=== PATIENT | female | born 1965 | race Caucasian/White ===

== ENCOUNTER 2018-06-19 00:21 | Outpatient (CLI) | payer BC, SELFPAY ==
--- NOTE | 2018-06-19 09:42 | DI.US_ITS ---
SYMPTOM/DIAGNOSIS: LUMP OF LT THIGH, R22.42, ? FLUID CYST, PAINFUL LUMP SOFT TISSUE OF POSTERIOR LEFT THIGH: Ultrasound examination of the posterior thigh at its junction with the right gluteus muscle is performed. A well circumscribed, ovoid, 1.7 by 2.9 by 1 cm., heterogeneous region of nodularity is demonstrated and there may be a tract extending to the skin. Correlation with the patient's clinical status is recommended.
[2018-06-19 12:42] LABS: ALT 104 U/L (12-78); AST 50 U/L (15-37); Albumin 4.1 g/dL (3.4-5.0); Alkaline Phosphatase 104 U/L (46-116); Anion Gap 9.7 mmol/L (3-11); BUN 20 mg/dL (7-18); CO2 29.3 mmol/L (21.0-32.0); Calcium 9.4 mg/dL (8.5-10.1); Chloride 106 mmol/L (98-107); Cholesterol 229 mg/dL (50-200); Glucose 98 mg/dL (70-100); HDL Cholesterol 68 mg/dL (40-60); LDL CHOLESTEROL 139 mg/dL (<100); Potassium 3.9 mmol/L (3.5-5.1); Sodium 145 mmol/L (136-145); Total Protein 7.2 g/dL (6.4-8.2); Triglyceride 170 mg/dL (30-150)
[2018-06-19 13:14] LABS: Bilirubin, Total 0.7 mg/dL (0.2-1.0)
== END 2018-06-19 00:41 ==
DX: R22.42 Localized swelling, mass and lump, left lower limb (principal); M79.652 Pain in left thigh; Z00.00 Encounter for general adult medical examination without abnormal findings; K29.50 Unspecified chronic gastritis without bleeding; M25.552 Pain in left hip
CPT/HCPCS: 36415; 76881; 80053; 80061; 83721

== ENCOUNTER 2018-10-10 00:46 | Outpatient (CLI) | payer BC, SELFPAY ==
[2018-10-10 08:26] LABS: HCT 41.9 % (36.0-46.0); HGB 13.9 g/dL (12.0-15.5); Mean Corp. HGB Concentration 33.2 g/dL (32.0-36.0); Mean Corpuscular Volume 93.5 fL (80-95); Mean Platelet Volume 10.4 fL (8.0-11.0); Platelet Count 308 x1000/uL (130-400); RBC 4.48 m/cumm (4.00-5.20); RBC Distribution Width 12.8 % (11.7-14.6); White Blood Cell Count 10.66 k/cumm (4.4-10.8)
[2018-10-10 08:32] LABS: Bilirubin Negative (Negative); Blood Large (Negative); Glucose Negative (Negative); Ketones Negative (Negative); Leukocyte Esterase Moderate (Negative); Nitrite Positive (Negative); Urobilinogen 0.2 EU/dL (Up TO 0.2)
[2018-10-10 08:33] LABS: Clarity Sl Cloudy
[2018-10-10 08:41] LABS: Bacteria Moderate HPF (Negative); C & S Indicated? Yes; Casts Negative LPF (Negative); Crystals Negative HPF (Negative); Epithelial Cells Few HPF (Negative); Mucus Negative (Negative); RBC 20-50 (0-2); WBC 20-50 HPF (0-5)
[2018-10-10 09:40] LABS: ALT 32 U/L (12-78); AST 26 U/L (15-37); Albumin 3.8 g/dL (3.4-5.0); Alkaline Phosphatase 98 U/L (46-116); Anion Gap 10.2 mmol/L (3-11); BUN 17 mg/dL (7-18); Bilirubin, Direct 0.12 mg/dL (0.00-0.20); Bilirubin, Total 0.3 mg/dL (0.2-1.0); CO2 29.8 mmol/L (21.0-32.0); CREATININE 0.84 mg/dL (0.55-1.02); Calcium 9.4 mg/dL (8.5-10.1); Chloride 101 mmol/L (98-107); Glucose 85 mg/dL (70-100); Potassium 3.8 mmol/L (3.5-5.1); Sodium 141 mmol/L (136-145); Total Protein 7.1 g/dL (6.4-8.2)
== END 2018-10-10 01:06 ==
DX: R31.9 Hematuria, unspecified (principal); R68.89 Other general symptoms and signs
CPT/HCPCS: 36415; 80053; 80076; 85027; 87077; 81003; 81015; 87086; 87186

== ENCOUNTER 2019-04-20 15:13 | Outpatient (REF) | payer BC, SELFPAY | END 2019-04-20 15:33 | LOC: LBN 15:13 | DX: M25.552 Pain in left hip (principal); S31.829A Unspecified open wound of left buttock, initial encounter | CPT/HCPCS: 87070; 87205 ==

== ENCOUNTER 2019-04-27 00:42 | Outpatient (CLI) | payer BC, SELFPAY ==
--- NOTE | 2019-04-27 07:47 | DI.RAD_ITS ---
SYMPTOMS/DIAGNOSIS: HIP PAIN, M25.559 BILATERAL HIPS AND PELVIS: Comparison x-ray of the abdomen from 04/29/09. In the left hip there is marked narrowing of the superior joint space. Subchondral sclerosis and cysts are noted. There are osteophytes arising from both acetabulum and the femoral head. The right hip is well maintained as are the sacroiliac joints and symphysis pubis. There is again seen a transitional lumbosacral vertebral body. No acute fracture or subluxation is seen. The soft tissues are unremarkable. IMPRESSION: Severe osteoarthritis of the left hip.
== END 2019-04-27 01:02 ==
DX: M25.552 Pain in left hip (principal); M16.12 Unilateral primary osteoarthritis, left hip
CPT/HCPCS: 73521

== ENCOUNTER 2019-05-22 01:01 | Outpatient (CLI) | payer BC, SELFPAY ==
--- NOTE | 2019-05-22 08:13 | DI.RAD_ITS ---
SYMPTOM/DIAGNOSIS: LT HIP INJECTION, PRIMARY OA LT HIP, M16.12 LEFT HIP INJECTION: Fluoroscopy Time: 11.2 seconds 1.08 mGy Fluoroscopy was utilized by Dr Thornton during the performance of a left hip injection. Please refer to the procedure report for complete details.
[2019-05-22] MEDS: methylPREDNISolone ACETATE 80 MG/ML VIAL IM (08:15)
[2019-05-22] MEDS: Omnipaque 300 MG/ML 10 ML BTL IJ (08:16)
[2019-05-22] MEDS: Bupivacaine 0.5% Pres-Free 10 ML VIAL 5 ML IJ (08:16)
--- NOTE | 2019-05-22 10:45 | W.PROCNOTE ---
Date of service: 05/22/19 Time of Service: 08:07 Procedure Note Date of procedure: 05/22/19 Procedure: Left Hip Injection with Fluoroscopic Guidance Surgeon/Proceduralist/Physician: Alec Thornton Procedure Diagnosis: Left Hip Osteoarthritis Procedure Indications: Eloisa has had persistent pain of the LEFT hip and groin. Noninvasive measures have been tried. To serve as both diagnostic and therapeutic, an injection under fluoroscopy was recommended. I had discussed the risks of the procedure and the patient elected to proceed. Procedure Description: Eloisa was greeted in the flouroscopy room. The correct side was identified and the consent was reviewed with the patient and signed. The patient was then placed in the supine position on the fluoroscopy table. The LEFT hip was then prepped with Chloraprep. The anterolateral injection starting point was identiifed by bony landmarks and fluoroscopy. The skin and soft tissue in the tract of the injection was anesthetized with 1% Lidocaine. A spinal needle was then inserted deep into the hip joint at the level of the lateral femoral neck under fluoroscopic guidance. A small amount of Omnipaque solution was injected to confirm intraarticular placement. Once confirmed, the hip was injected with 6cc of 0.5% Bupivicaine and 80mg of Depo-Medrol. A bandaid was placed on the injection site. The patient tolerated the procedure well and noted improvement in pre-injection pain.
== END 2019-05-22 01:21 ==
PROVIDERS: Visit Provider Student in an Organized Health Care Education/Training Program
DX: M16.12 Unilateral primary osteoarthritis, left hip (principal); M25.552 Pain in left hip
CPT/HCPCS: 20610; 77002; J1040

== ENCOUNTER 2019-07-21 01:14 | Outpatient (CLI) | payer BC, SELFPAY ==
--- NOTE | 2019-07-21 09:00 | DI.MAMMO_ITS ---
EXAM: MAMMO SCREENING CLINICAL HISTORY: screening, Z12.39 TECHNIQUE: Mammograms were interpreted according to the usual protocol including computer analysis w [employer] It CAD system, tomosynthesis and C-view imaging. COMPARISON: [id number] FINDINGS: The breasts are composed of scattered areas of fibroglandular densities, breast density category B. There are no suspicious masses or suspicious microcalcifications. There has been no significant malik e when compared with prior images. IMPRESSION: Category 1, negative mammogram. Routine yearly screening is recommended. BI-RADS Cat 1 - Negative Breast Density - Category B - Scattered areas of fibroglandular density
== END 2019-07-21 01:34 ==
DX: Z12.31 Encounter for screening mammogram for malignant neoplasm of breast (principal)
CPT/HCPCS: 77063; 77067

== ENCOUNTER 2019-11-05 10:57 | Outpatient (CLI) | payer BC, SELFPAY ==
--- NOTE | 2019-11-05 09:42 | DI.RAD_ITS ---
EXAM: XR PELVIS AP CLINICAL HISTORY: pre surgical planning - L hip OA TECHNIQUE: COMPARISON: XR hip pelvis adult Bl from 04/27/2019 FINDINGS: Single AP view of the pelvis was obtained. There is virtually complete loss of the cartilaginous sabiha nt space of the left hip superiorly with marked subchondral sclerosis and cyst formation of the adjac ent bones and marked deformity of femoral head and acetabulum. Very prominent marginal osteophytes n oted at this joint. IMPRESSION: Severe DJD left hip, mild DJD right hip.
== END 2019-11-05 11:17 ==
PROVIDERS: Visit Provider Student in an Organized Health Care Education/Training Program
DX: M16.0 Bilateral primary osteoarthritis of hip (principal)
CPT/HCPCS: 72170

== ENCOUNTER 2019-11-24 12:45 | Outpatient (CLI) | payer BC, SELFPAY ==
[2019-11-24 14:00] LABS: HCT 43.3 % (36.0-46.0); HGB 14.4 g/dL (12.0-15.5); Mean Corp. HGB Concentration 33.3 g/dL (32.0-36.0); Mean Corpuscular Hemoglobin 30.4 pg (27.0-33.0); Mean Corpuscular Volume 91.4 fL (80-95); Mean Platelet Volume 10.2 fL (8.0-11.0); Platelet Count 317 x1000/uL (130-400); RBC 4.74 m/cumm (4.00-5.20); RBC Distribution Width 13.1 % (11.7-14.6); White Blood Cell Count 8.54 k/cumm (4.4-10.8)
[2019-11-24 14:49] LABS: Anion Gap 5.9 mmol/L (3-11); BUN 18 mg/dL (7-18); CO2 32.1 mmol/L (21.0-32.0); CREATININE 0.63 mg/dL (0.55-1.02); Calcium 9.3 mg/dL (8.5-10.1); Chloride 104 mmol/L (98-107); Glucose 90 mg/dL (74-106); Potassium 4.2 mmol/L (3.5-5.1); Sodium 142 mmol/L (136-145)
== END 2019-11-24 13:05 ==
PROVIDERS: Visit Provider Student in an Organized Health Care Education/Training Program
DX: M16.12 Unilateral primary osteoarthritis, left hip (principal); Z01.82 Encounter for allergy testing
CPT/HCPCS: 36415; 80048; 85027; 86850; 86900; 86901

== ENCOUNTER 2019-12-02 07:56 | Observation (INO) | payer BC, SELFPAY ==
--- NOTE | 2019-11-24 18:13 | CMPROGNOTE_ITS ---
Care Management Progress Note L HIP, scheduled surgery 12/02/19. Eloisa reports living in [place], [place] she is and her son, Loyd, his girlfriend and Eloisa's cats reside with her as well. 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 She is independent at baseline in the community. Her insurance is [employer], [employer]. Eloisa has portal acces s. Her PCP is Zhanna Iyer, SERVICE COUNSELOR at [facility]. Eloisa has advance directives on file with her three sons listed: Loyd Shwetha (agent), Chucho Tadeo (Alternate), Art Conner'Brien (Other) Eloisa has a raised toilet seat, recliner, metrology engineer tool. She has already applied for FMLA. CM reviewed provision of FWW prior to discharging from [facility] if recommended per MD and PT. Eloisa reports she has three stairs to enter her home only. Her sister, Kay will bringing her the day of surgery and family will transport her upon discharge. She shared no concerns at this time, CM reviewed contact information as needed prior to surgery.
--- NOTE | 2019-11-24 18:13 | PDOC.CMPRO ---
Care Management Progress Note L HIP, scheduled surgery 12/02/19. Eloisa reports living in [place], [place] she is and her son, Loyd, his girlfriend and Eloisa's cats reside with her as well. 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 She is independent at baseline in the community. Her insurance is [employer], [employer]. Eloisa has portal access. Her PCP is Zhanna Iyer NP at [facility]. Eloisa has advance directives on file with her three sons listed: Loyd Shwetha (agent), Cuhcho Tadeo (Alternate), Art Conner'Brien (Other) Eloisa has a raised toilet seat, recliner, oracle ebs developer tool. She has already applied for FMLA. CM reviewed provision of FWW prior to discharging from [facility] if recommended per MD and PT. Eloisa reports she has three stairs to enter her home only. Her sister, Kay will bringing her the day of surgery and family will transport her upon discharge. She shared no concerns at this time, CM reviewed contact information as needed prior to surgery.
[2019-12-02] VITALS (12 sets, daily range): BP systolic 88–130; BP diastolic 50–84; PULSE 76–89; RESP 13–19; TEMP 36.2–37; O2SAT 93–99
[2019-12-02] MEDS: Lactated Ringers 1,000 ML 80 ML IV ×3 (08:33→22:25)
[2019-12-02] MEDS: Acetaminophen 500 MG TAB 1000 MG PO ×3 (08:35→19:19)
[2019-12-02] MEDS: Celecoxib 200 MG CAP 400 MG PO (08:35)
--- NOTE | 2019-12-02 10:15 | DI.RAD_ITS ---
EXAM: XR HIP LT IN OR CLINICAL HISTORY: Primary osteoarthritis of left hip. TECHNIQUE: 2D digital imaging was performed. COMPARISON: XR PELVIS AP from 11/05/2019 FINDINGS: Fluoroscopy was utilized by Dr. Thornton in the operating Room during the performance of a left total hip replacement. The orthopedic hardware appears to be in good position. Please refer to the proce ata report for complete details. IMPRESSION: Left total hip replacement. Fluoro Time: 21.2 seconds DATA REPOSITORY: RADIATION DOSE DELIVERED:
[2019-12-02] MEDS: ceFAZolin 2 GM/50 ML BAG IVPB (10:57)
[2019-12-02] MEDS: Bupivacaine 0.25% Pres-Free 30 ML VIAL (12:10)
[2019-12-02] MEDS: Ketorolac 30 MG/ML VIAL (12:10)
--- NOTE | 2019-12-02 13:26 | ROE_ITS ---
Date of service: 12/02/19 Time of Service: 13:26 Operative Note Operative Note DATE OF PROCEDURE: 12/02/19 PRE-OP DIAGNOSIS: Left Hip Osteoarthritis POST-OP DIAGNOSIS: same PROCEDURE: Left Anterior Total Hip Arthroplasty SURGEON: Alec Thornton REGISTRY NP: Marielos Reyes ANESTHESIA: spinal ESTIMATED BLOOD LOSS: 350 PATHOLOGY: none sent COMPLICATIONS: None Patient was transported to: PACU Patient's condition: stable Implants: 1. Depuy [place] Acetabular Component, 48mm 2. Depuy Acetabular Liner, [id number] 3. Depuy Corail Coxa Vara Femoral Stem, Size 11 4. Depuy Altrx Ceramic Femoral Head, Size 32+5mm Indications: I have seen Eloisa in clinic for symptoms of hip arthritis, confirmed with radiographic findings. She has exhausted nonoperative methods and was having significant limitations in daily function and desired better function and less pain. I discussed the technical details of a hip replacement. I explained the risks of the procedure to include, but not limited to, bleeding, infection, pain, stiffness, fracture, damage to nerves and vessels, damage to muscles and tendons, loosening, instability, leg length inequality, need for repeat procedure, blood clot and cardiopulmonary demise. Despite these risks, Eloisa elected to proceed. Findings: There was significant signs of arthritis throughout the hip. Large osteophytes were present around the lateral neck and acetabulum. Procedure Description: Eloisa was greeted in the preoperative holding area where the correct side was identified and marked. The consent was reviewed with the patient and signed. The history and physical was updated. All questions were answered. Eloisa was taken back to the operating room. A spinal anesthestic was then administered. The patient was placed into the supine position on the operating room table. The patient was then positioned onto the ARCH table. Both feet were wrapped with Webrill cotton wrap along with Coban. The feet were placed in specialized boots for the ARCH table, well seated within the boot and secured. SCDs were applied. The patient was then slid down onto a peroneal post and the nonoperative leg was secured in a leg galdamez attached to the table. The operative side was placed into the ARCH table attachment and bed height and positioning was secured. A preoperative AP pelvis was obtained to serve as a reference for determining leg lengths. Prophylactic antibiotics in the form of Cefazolin were administered. 1g of Tranxemic Acid was given intravenously within 30 minutes of incision. The left leg was then prepped with Chloraprep and draped in a standard fashion. A second prep was performed prior to placing the final shower-curtain type drape with Iodine impregnated skin protection. A timeout to confirm correct identity, side and site, procedure, allergies, anesthesia, and medical concerns was performed. An obliquely oriented incision was made starting lateral to the ASIS and running distal over the Tensor Fascia Xiomara (TFL) muscle belly toward the fibular head, approximately 10cm. The skin and soft tissue was dissected sharply, through Sean?s fascia, and to the fascia of the TFL. With the fascia and superior border of the IT band identified, the fascia was incised with a new knife just above any perforators from the IT band. The TFL muscle belly was bluntly dissected away from the fascia and moved laterally. The fat between TFL and rectus was identified to ensure the dissection was not within the TFL. Blunt dissection created space between abductors and the capsule and retractor was placed over the lateral femoral neck. The fibers of the rectus femoris tendon were identified and these were freed from the anterior capsule. A second cobra retractor was placed around the medial femoral neck. The TFL was further retrac cameron laterally to show the deep fascia. Careful dissection through this layer identified three main crossing vessels of the lateral femoral circumflex. These were cauterized in multiple locations and then cut without any noticeable bleeding. The TFL was further released bluntly from the deep fascia to expose anterior hip capsule and fat The Tristan orthopaedic retractor was then placed beneath the TFL and against sartorius and medial soft tissues to protect and retract the soft tissues. A T-capsulotomy was then performed starting at the superior lateral acetabulum and moving distally to the intertrochanteric ridge. These capsular flaps were tagged with a No. 1 Ethibond and elevated from within. The capsular flaps were released to the shoulder of the lateral neck and to the lesser trochanter to give excellent visualization of the proximal femur. A neck osteotomy was performed using an oscillating saw based on preoperative templates. This cut started in the shoulder and of the lateral neck and exited medially. The saw was at all times directed medially to avoid injury to the greater trochanter. 6cm of traction was applied to the leg and the osteotomy opened. The femoral head was removed with a corkscrew, making sure to protect the TFL on its exit. This was measured on the back table to determing the starting reamer size. Portions of the rectus obscuring visualization were minimally elevated off the superior acetabulum. An anterior retractor was placed over the anterior wall between capsule and labrum and held with the Gripper retraction system. A posterior retractor was placed similarly. This provided excellent visualization. The contents of the cotyloid fossa were removed with electrocautery and the labrum was removed with a knife. There was a notable floor osteophyte. There was significant chondromalacia of the superior acetabulum. Acetabular reaming began with a 45mm reamer. This first reaming was directed anterior to posterior and medial to get down to the true floor. This was inspected and reamed until the true floor was reached. I then reamed sequentially up to a 47mm reamer where good fit was obtained. The larger reamers were oriented based on anatomical reference of the anterior and lateral rodriguez to ensure proper abduction and anteversion. Positioning and size was confirmed with the fluoroscopy. A 48mm Depuy [place] acetabular component was selected. The acetabulum was reamed around the periphery with the selected acetabular size to prevent a rim fit. The deep tissues were irrigated. The acetabular component was then impacted in a position of about 40-45 degrees of abduction and 15-20 degrees of anteversion, using the patient?s anatomy as the ultimate landmark. Fluoroscopy was used to confirm this. There was e xcellent petroleum products sales representative of the acetabular component and the inserting handle was removed. The acetabular liner, Depuy [id number] polyethylene liner, was inserted and lined up with the tines of the acetabular component. There was no soft tissue interposition. The liner was then impacted into position and confirmed to be well-seated. A portion of the ilene-articular cocktail was then injected around the acetabulum into the capsule and periosteum. This cocktail consisted of 50cc of 0.25% Bupivicaine and 20cc of Exparel, expanded to a total of 120cc. Traction was released from the femur. The leg was rotated to 120 degrees. Any remaining medial capsule was released until the lesser trochanter was easily palpable. A Bartlett retractor was placed medially. The lateral capsule was further released into the shoulder to allow access to the greater trochanter. A Bartlett retractor was placed over the greater trochanter which allowed the trochanter to flip in front of the capsule for excellent exposure. The leg was brought down into maximal extension and 20 degrees of adduction while ensuring there was no impingement on the acetabulum. Any remnant capsule within the trochanter was released. Piriformis and obturator externis were identified and protected. There was excellent access to the proximal femur. The lateral neck remnant was removed with a rongeur. A blunt canal probe was used to identify the canal and trajectory for later broaching. A box osteotome initiated the broach course. A small curved rasp and a curved curette were used to work laterally. Broaching then began with a size 8 Corail broach. This was inserted manually around the trochanter and into the canal before mallet blows. The broach was seated to a few millimeters below the cut level based on the neck cut and the preoperative template. Sequential broaching was continued using the [employer] pneumatic broaching unit until a tight fit was obtained with good rotational control of the femur. A trial coxa vara neck was inserted along with a +1 trial head. The leg was brought out of extension and adduction and then reduced with traction and internal rotation. The leg was stable anteriorly in a position of 30 degrees of extension and 90 degrees of external rotation. Fluoroscopy was used to ensure there was no fracture and the stem was seated well. Leg lengths were checked with an AP pelvis and pelvic reference points and confirmed with the P[employer]Spot intraoperative measurement system. This showed a minimal amount of under offset and leg length. The +5 head was then trialed and this recreated the correct leg length and offset. Once content with the desired offset and leg lengths, the leg was brought back into extension, external rotation and adduction. The periosteum and surrounding tissue was injected with remaining portion of the ilene-articular cocktail. The proximal femur was irrigated as well as the deep tissues. The Depuy Corail Coxa Vara stem, size 11, was then manually inserted into the proximal femur making sure to control rotation. It was then malleted into position with light blows, giving breaks to allow bone expansion and decrease risk of fracture. The selected Depuy Altrx Ceramic Head, size 32+5mm, was then placed onto the clean and dry trunnion and secured with impaction onto the tapered fit. The leg was brought back out of extension and adduction and reduced with traction and internal rotation. Stability was confirmed with no shuck at 90 degrees of external rotation and 30 degrees of extension. No impingement through range of motion arc. Final x-ray images were obtained with fluoroscopy to confirm adequate positioning and no intraoperative fracture. The deep tissues were thoroughly irrigated with a pulse lavage. The second dose of TXA 1g was administered intravenously.The capsule was then reapproximated with the previously placed Ethibond sutures. The TFL fascia was finally closed with a No. 2 Stratafix, barbed suture. Deep tissues were then reapproximated with 0 Vicryl and a running 2-0 Vicryl. The skin was closed with a running 4-0 Monocryl in a subcuticular fashion. This was reinforced with skin glue. A Mepilex silver dressing was applied. At the end of the case, all counts were correct. Bianca was transferred to the hospital bed without difficulty and suffering no apparent complication. Eloisa has a good prognosis. Physical therapy will start today and without restrictions, weight-bearing as tolerated. Aspirin 81mg BID will be used for DVT prophylaxis.
--- NOTE | 2019-12-02 15:35 | PT.INIE ---
Date of service: 12/02/19 Time of Service: 15:35 PT Notes Visit Reasons: LEFT HIP DJD Physical Therapy Inpatient Initial Evaluation Date: 12/02/2019 Referring Doctor: Alec Thornton M.D. PT Orders: PT CONSULT: s/p ortho surgery Precautions: Fall. Standard. Activity as tolerated. Patient Profile/Admitting Diagnosis: Pt is 54-year-old woman with history of left hip osteoarthritis presenting status post left total hip arthroplasty on post-operative day zero. PMHX: Medical History (Updated 11/24/19 @ 13:19 by Shin Salmeron) Chronic gastritis Duodenal ulcer Lump of left thigh (Inactive 05/29/18) Osteoarthritis (Chronic) Sebaceous cyst (Acute) Surgical History (Updated 11/24/19 @ 15:02 by MILAN Stanley) Colonoscopy - MAC (09/18/17) History of section (Inactive) x2 History of surgical procedure (Inactive) I & D of cyst, left upper, posterior thigh PROCEDURES ESOPHAGEAL DX PROC NEC, 05/08 Dr. Kelly Status post cholecystectomy (Inactive 06/10/12) Social History/Home Situation: Pt lives in an apartment in [facility] with her son and son?s girlfriend. Three steps to enter the apartment with rails on both sides. Equipment Owned/DME: Electric recliner chair Subjective: Pt reports that she is able to feel and move her legs. She denies pain in the L LE. Notes that she did not ambulate with an assistive device prior to surgery. Objective: General Observation: Mepilex dressing over incision. Thromboembolic pumps on bilateral LEs. Mental Status: Alert and oriented x4 Pain: 0/10 ROM: Right Upper Extremity: Shoulder Flexion WFL. Shoulder abduction WFL. Elbow flexion WFL. Wrist flexion WFL. Opening and closing of hand WFL. Left Upper Extremity: Shoulder Flexion WFL. Shoulder abduction WFL. Elbow flexion WFL. Wrist flexion WFL. Opening and closing of hand WFL. Right Lower Extremity: Hip flexion WFL. Hip abduction WFL. Knee flexion WFL. Ankle dorsiflexion WFL. Ankle plantarflexion WFL. Left Lower Extremity: Hip flexion 115 degrees. Hip abduction WFL. Knee flexion WFL. Ankle dorsiflexion WFL. Ankle plantarflexion WFL. Strength: Right Upper Extremity: Shoulder flexors 5/5. Shoulder abductors 5/5. Elbow flexors 4+/5. Elbow extensors 4+/5. Heavy Equipment Service Technician strong. Left Upper Extremity: Shoulder flexors 5/5. Shoulder abductors 5/5. Elbow flexors 4+/5. Elbow extensors 5/5. Heavy Equipment Service Technician strong. Right Lower Extremity: Hip flexors 4+/5. Hip abductors 5/5. Knee flexors 4+/5. Knee extensors 5/5. Ankle dorsiflexors 5/5. Ankle plantarflexors 5/5. Left Lower Extremity: Hip flexors 3-/5. Hip abductors 4/5. Knee flexors 4+/5. Knee extensors 5/5. Ankle dorsiflexors 5/5. Ankle plantarflexors 5/5. Sensation: Intact as to pain and pressure on bilateral lower extremities. Bed Mobility/Transfers: Rolling SBA Supine to sit SBA Sit to supine SBA Sit to stand SBA Stand to sit SBA Bed to chair SBA Chair to bed SBA Gait: Pt was able to ambulate 70 feet, WBAT on the L LE, using a front-wheeled walker. CGA provided by PT student. Step to gait pattern with asymmetrical step length and height. Balance: Static Sitting: Normal Dynamic Sitting: Normal Static Standing: Fair Dynamic Standing: Fair Special Tests: Mobility Limitations Standardized Measure [facility] 6 clicks Basic Mobility Inpatient Short Form: Raw Score: 23 CMS Score: 11% deficit Informed Consent/Education: Patient instructed in purpose of PT consult and plan of care. Instructed the pt in strengthening interventions to complete every hour while in the hospital setting, including gluteus sets x10, quadriceps sets x10, and ankle pumps x10. Assessment: Pt is 54-year-old woman with history of left hip osteoarthritis presenting status post left total hip arthroplasty on post-operative day zero. Pt presented with impairment level findings and functional limitations as listed below. She demonstrated the ability to perform bed mobility and transfers with only a stand by assist. Pt was able to tolerate a short walking distance without complaints of increased pain, fatigue, or dizziness. She would continue to benefit from skilled physical therapy at this time to assess ability to negotiate stairs, and improve strength, balance, and mobility level. Patient presents with clinical signs and symptoms consistent with current/admitting diagnoses that have resulted to mobility limitations, gait instability, and generalized weakness as demonstrated by the following impairment level findings: 1. Decreased strength to L hip major muscle groups 2. Impaired standing balance 3. Impaired activity tolerance 4. Limitation of joint range of motion in left hip Impairments are contributing to the following functional limitations: 1. Dependent bed mobility skills 2. Increased dependence with transfers 3. Inability to safely ambulate without assistive device and physical assistance 4. Increase completion time for mobility ADL performance 5. Increased fall risk 6. Inability to negotiate steps alone safely Patient is assessed as a [id number] moderate complexity based on the following: History: Pt presented with impairment level findings and functional limitations as listed below. AM-PAC raw score of 23 with 11% deficit. Examination: Demonstrable impairment in strength, balance, and range of motion with underlying impairments and functional limitations as documented above Presentation: Evolving Decision Makin moderate complexity Goals: Goals X1 week 1. Supine-Sit independent 2. Sit-Supine independent 3. Sit-Stand independent 4. Stand-Sit independent 5. Bed-Chair independent 6. Chair-Bed independent 7. Independent gait on level surface with use of least restrictive device for at least 300 feet without report of pain nor dyspnea 8. Independent stair negotiation while holding onto bilateral rails for at least 4 steps without report of pain nor dyspnea 9. Independent with home exercise program 10. Good static and dynamic standing balance/tolerance Plan of Care/Treatment Plan: 1-2x/day, 7 days/week x 1 week. Plan of care has been reviewed with the SOCIAL STUDIES TEACHER providing the service under Physical Therapy direction. Initiate Physical Therapy intervention for strengthening, bed mobility, transfers, gait, stairs, balance training, use of assistive device. DISCHARGE RECOMMENDATIONS: Discharge to home when medically cleared. Physical therapy will assess the pt?s ability to negotiate stairs at a later treatment session. Recommend a front-wheeled walker at this time for ambulation. TREATMENT CODE/TIME: 38166 x 20 minutes beginning at 15:35 P.M. Thank you very much for this referral. Brent Dumont, SPT Doctor of Physical Therapy Student [facility] Supervision provided by Angela Mobley PT, DPT, CLT [facility] [place], [place]
[2019-12-02] MEDS: ceFAZolin 1 GM/50 ML BAG IVPB (17:34)
[2019-12-02] MEDS: Celecoxib 200 MG CAP PO (19:20)
[2019-12-02] MEDS: oxyCODONE 5 MG TAB PO (22:25)
[2019-12-03] MEDS: ceFAZolin 1 GM/50 ML BAG IVPB ×2 (02:08→09:45)
[2019-12-03 03:51] VITALS: BP 116/64; PULSE 81; RESP 16; TEMP 35.9; O2SAT 94
--- NOTE | 2019-12-03 06:47 | DSE_ITS ---
Date of service: 12/03/19 Time of Service: 07:47 DS: Diagnosis Discharge Diagnosis (1) Primary osteoarthritis of left hip: Status: Chronic Discharge Plan Disposition Patient Disposition: HOME Condition: Good Discharge Details Reason For Visit: LEFT HIP DJD Admit Date/Time: 12/02/19 07:56 Admit Provider: Alec Thornton Attending Provider: Alec Thornton Primary Care Provider: Zhanna Iyer Hospital Course Hospital Course: Patient was admitted to the medical/surgical floor following the procedure. It was tolerated well without any notable medical, surgical, or anesthetic complications. Mobilization began postoperatively. The perla catheter was removed and voiding spontaneously. Vitals were stable. Physical therapy worked with the patient and was cleared for discharge home. No acute medical issues. Home Meds and New Rx's Prescriptions: New aspirin 81 mg tablet,delayed release (DR/EC) 81 mg PO BID Qty: 60 RF: 0 acetaminophen 500 mg tablet 1,000 mg PO Q8H PRN (Reason: pain) Qty: 90 RF: 3 pantoprazole 40 mg tablet,delayed release (DR/EC) 40 mg PO DAILY Qty: 30 RF: 0 oxycodone 5 mg tablet 5 mg PO Q6H PRN PRNQty: 12 RF: 0 celecoxib 100 mg capsule 100 mg PO BID Qty: 60 RF: 3 Continued multivitamin [Daily Multi-Vitamin] 1 EACH tablet 1 ea PO DAILY Qty: 1 RF: 0 Discontinued naproxen sodium 220 mg capsule 220 mg PO PRN PRNRF: 0 Discharge Instructions Additional Instructions: Dr. Thornton?s Total Hip Discharge Instructions Activity: The most important activity is to walk. You should try to take short walks a few times a day. You have no restrictions on movement or positioning, but do not try to force what you do. You will find some stiffness and weakness with hip flexion (lifting your knee). Do not try to strengthen this too early, continue to practice walking and stairs and this will come. - Outpatient physical therapy can be helpful to help return you to a normal gait and improve your flexibility and strength. This can start around 2 weeks. For some patients, it?s not necessary. Usually this is determined at the time of discharge or at the first post-operative visit. - You should wear the MONICA hose on both legs for 2 weeks. Dressing: Keep the surgical dressing in place for at least one week. After the first week it may be removed and replace with light gauze and tape or nothing. It may get wet after 3 days but avoid soaking the dressing. If it gets wet, just lightly pat dry. It is important to always keep some gauze between skin folds, especially when you are sitting. Spend some time with the wound exposed when you are lying flat as the incision does wrinkle onto itself. Medications: - You should take Tylenol and an anti-inflammatory Celebrex as your primary pain control medications - You have been prescribed a stronger pain medication Oxycodone for breakthrough pain, take as needed as prescribed. - You have also been prescribed a stomach acid reduction agent Pantoprozole to help reduce stomach acid and reflux. - You will be taking Aspirin 81mg twice a day for DVT prevention unless instructed otherwise. - If you have constipation you should take Colace or Miralax (both [id number]). It takes most people 3-4 days to have a bowel movement. Follow-up: 2 weeks Referrals: Alec Thornton MD [ [facility] STAFF PHYSICIAN] - Activity:: Activity as Tolerated Equipment/Supplies:: Walker Diet:: As Tolerated Discharge Orders Discharge Orders: Discharge Order (Routine); Ordered 12/03/19 Ordered By: Alec Thornton DS: Summary Status at Discharge Functional status at discharge: uses cane/walker Overall status at discharge: patient is progressing back to baseline Mental Status: mental status grossly normal Speech and Movement: speech and movement normal Mood: congruent mood Affect: normal affect Exam Psych Mental Status: mental status grossly normal Speech and Movement: speech and movement normal Mood: congruent mood Affect: normal affect DS: Data Vitals/I&O Vitals and I&O: Vital Signs Temperature 35.9 C L 12/03/19 03:51 Temperature Source Tympanic 12/03/19 03:51 Pulse 81 12/03/19 03:51 Pulse Rhythm Regular 12/03/19 02:55 Respiratory Rate 16 12/03/19 03:51 Respiratory Effort Non-Labored 12/03/19 02:55 Respiratory Depth Normal 12/03/19 02:55 Respiratory Pattern Normal 12/03/19 02:55 Blood Pressure 116/64 12/03/19 03:51 Pulse Oximetry 94 L 12/03/19 03:51 Respiratory End-tidal CO2 32 12/02/19 13:50 Oxygen Delivery Method Room Air 12/03/19 03:51 Oxygen Flow Rate 0 12/03/19 03:51 Pain Level 2 12/03/19 03:51 Intake & Output 12/02/19 12/02/19 12/03/19 11:59 23:59 11:59 Intake Total 110 / 2720 2610 / 2720 Output Total 2350 / 2350 325 / 325 Balance 110 / 370 260 / 370 -325 / -325 Weight 58.2 kg Intake: IV 110 / 2220 2110 / 2220 Oral 500 / 500 Output: Urine 1999 325 / 325 Estimated Blood Loss 350 / 350 Other: Urine Color Straw Pale Yellow Yellow Urine Appearance Clear Clear Clear Urine Odor None Strong Comment PACU. Emesis Description None Voiding Methods Toilet Toilet [facility] Medical History Chronic gastritis Duodenal ulcer Lump of left thigh (Inactive 05/29/18) Osteoarthritis (Chronic) Sebaceous cyst (Acute) Surgical History Colonoscopy - MAC (09/18/17) History of section (Inactive) x2 History of surgical procedure (Inactive) I & D of cyst, left upper, posterior thigh PROCEDURES ESOPHAGEAL DX PROC NEC, 05/08 Dr. Kelly Status post cholecystectomy (Inactive 06/10/12) Family History Mother , age 79 Essential hypertension Heart disease Stroke Bacterial pneumonia Father , in his 50s Renal cancer Sister Heart disease Maternal Grandfather No problems noted. Paternal Grandfather No problems noted. Maternal Grandmother No problems noted. Paternal Grandmother No problems noted. Sister No problems noted. Sister Lupus Sister Anxiety Neoplasm Sister No problems noted. Son No problems noted. Son No problems noted. Son No problems noted. Social History Smoking/Tobacco Use Status: Former Tobacco Use Quit Date: 04/30/09 Second Hand Exposure: No Drug use: Never Substance use type: does not use Counseling given: No Counseling provided: other Caregiver/Support person: No Household members: children Housing: apartment Communication Needs: None Do you need help understanding health information?: Rarely Pets and animals: Yes Pets and animals: cat(s) Sexually active: No Do you think of yourself as: straight/heterosexual Current gender identity: female What is your relationship status?: How often do you talk on the phone with friends or family?: three or more times per week How often do you get together with friends or relatives?: once per week How often do you attend shinto or jehovah's witness services?: 4 or more times per year Do you belong to any clubs or organized social groups?: no Panel score (0-1 are the most socially isolated patients): 2 What type of physical activity do you participate in: walking Duration: 15-30 minutes/day Frequency: 5-6 times per week Kaylene/Christianity: Synagogue Special kaylene needs: No Seatbelt use: always Helmet use: Yes Helmet use: always Drive intox or ride w/intox warehouse driver: No
[2019-12-03] MEDS: Celecoxib 200 MG CAP PO (07:33)
[2019-12-03] MEDS: Pantoprazole 40 MG TABCR PO (07:33)
[2019-12-03] MEDS: Acetaminophen 500 MG TAB 1000 MG PO (07:33)
[2019-12-03 08:06] VITALS: BP 124/73; PULSE 87; RESP 17; TEMP 36.8; O2SAT 94
[2019-12-03] MEDS: Multivitamin TAB 1 TAB PO (09:08)
[2019-12-03] MEDS: oxyCODONE 5 MG TAB PO (09:08)
[2019-12-03] MEDS: Normal Saline Flush 10 ML SYR IV (09:45)
[2019-12-03] MEDS: Ondansetron 4 MG/2 ML VIAL IVP (10:32)
[2019-12-03 11:45] VITALS: BP 133/89; PULSE 86; RESP 17; TEMP 36.5; O2SAT 97
--- NOTE | 2019-12-03 11:46 | PT.INTREAT ---
Date of service: 12/03/19 Time of Service: 11:46 PT Notes Visit Reasons: LEFT HIP DJD 12/03/2019 SUBJECTIVE: Eloisa reporting minimal discomfort. She states it feels good to get up and move and stretch the legs. OBJECTIVE: Pt seated in her chair. Agreeable to PT treatment. PT EDUCATION: Review HEP. FWW is set up to patient's correct height. TRANSFERS Sit to stand: S Stand to sit: S GAIT Device: FWW Weight bearing: AT L Assist: S Distance: 250' Deviation: Step through pattern STAIRS: 3-4 steps, 2-6 steps, step to pattern, 2 rails, S only. ASSESSMENT: No difficulty with straight plane ambulation or stair management. She has a good understanding of her home program and she knows to find the balance between rest and getting up and walking around. PLAN: Pt to be discharged home. See discharge summary for details. Treatment time: 12' [address]95[address] Lisa Reyna, POSTAL SUPERINTENDENT
--- NOTE | 2019-12-03 14:16 | CHAPLAIN ---
Eloisa was up walking around her room using a walking, and packing up her belongs to go home, when I visited. She saids he was in a great deal of pain before surgery. Her two sisters live in [place], [place] and Eloisa said she is looking forward to visiting them, going to the beach there.
--- NOTE | 2019-12-03 17:10 | PDOC.CMPRO ---
Care Management Progress Note CM met with Eloisa pre-op to assess patient needs prior to surgery-see note for additional details. FWW filled through [facility] as recommended by MD/PT prior to discharge.
--- NOTE | 2019-12-04 16:59 | INDS_ITS ---
Date of service: 12/04/19 PT Notes Visit Reasons: LEFT HIP DJD Physical Therapy Inpatient Discharge Summary Date: 12/04/2019 Dates of Service: 12/02/2019 through 12/03/2019 This is a clinical summary of care provided on the duration of dates listed above. No charge was made in the completion of this documentation. Patient Profile/Admitting Diagnosis: Pt is 54-year-old woman with history of left hip osteoarthritis presenting status post left total hip arthroplasty on post-operative day zero. Objective: General Observation: Mepilex dressing over incision. Thromboembolic pumps on bilateral LEs. Mental Status: alert and oriented x4 Pain: 0/10 ROM: Right Upper Extremity: Shoulder Flexion WFL. Shoulder abduction WFL. Elbow flexion WFL. Wrist flexion WFL. Opening and closing of hand WFL. Left Upper Extremity: Shoulder Flexion WFL. Shoulder abduction WFL. Elbow f lexion WFL. Wrist flexion WFL. Opening and closing of hand WFL. Right Lower Extremity: Hip flexion WFL. Hip abduction WFL. Knee flexion WFL. Ankle dorsiflexion WFL. Ankle plantarflexion WFL. Left Lower Extremity: Hip flexion 115 degrees. Hip abduction WFL. Knee flexion WFL. Ankle dorsiflexion WFL. Ankle plantarflexion WFL. Strength: Right Upper Extremity: Shoulder flexors 5/5. Shoulder abductors 5/5. Elbow flexors 4+/5. Elbow extensors 4+/5. Library Sales Consultant strong. Left Upper Extremity: Shoulder flexors 5/5. Shoulder abductors 5/5. Elbow flexors 4+/5. Elbow extensors 5/5. Library Sales Consultant strong. Right Lower Extremity: Hip flexors 4+/5. Hip abductors 5/5. Knee flexors 4+/5. Knee extensors 5/5. Ankle dorsiflexors 5/5. Ankle plantarflexors 5/5. Left Lower Extremity: Hip flexors 3-/5. Hip abductors 4/5. Knee flexors 4+/5. Knee extensors 5/5. Ankle dorsiflexors 5/5. Ankle plantarflexors 5/5. Sensation: Intact as to pain and pressure on bilateral lower extremities. Bed Mobility/Transfers: Rolling SBA Supine to sit SBA Sit to supine SBA Sit to stand Supervision Stand to sit Supervision Bed to chair Supervision Chair to bed Supervision Gait: Pt was able to ambulate 250 feet, WBAT on the L LE, using a front-wheeled walker. Supervision provided by AMMONIUM NITRATE CRYSTALLIZER. Step through gait pattern. Stairs: Pt was able to ascend and descend the 4-inch steps x3 and 6-inch steps x2 using bilateral upper extremity support. Supervision provided by AMMONIUM NITRATE CRYSTALLIZER. Balance: Static Sitting: Normal Dynamic Sitting: Normal Static Standing: Fair Dynamic Standing: Fair Assessment: Pt is 54-year-old woman with history of left hip osteoarthritis presenting status post left total hip arthroplasty on post-operative day zero. Pt presented with impairment level findings and functional limitations as listed below. She demonstrated the ability to perform bed mobility and transfers with only a stand by assist on initial evaluation. Pt demonstrates improvements in mobility with ambulation as she was able to walk a much greater distance of 250 feet, as compared to 70 feet on initial evaluation. She was able to negotiate stairs without difficulty or complaints of increased pain. Patient continues to present with clinical signs and symptoms consistent with current/admitting diagnoses that have resulted to mobility limitations, gait instability, and generalized weakness as demonstrated by the following impairment level findings: 1. Decreased strength to L hip major muscle groups 2. Impaired standing balance 3. Impaired activity tolerance 4. Limitation of joint range of motion in left hip Impairments continue to contribute to the following functional limitations: 1. Dependent bed mobility skills 2. Increased dependence with transfers 3. Inability to safely ambulate without assistive device and physical ass istance 4. Increase completion time for mobility ADL performance 5. Increased fall risk 6. Inability to negotiate steps alone safely Patient was assessed as a [id number] moderate complexity based on the following: History: Pt presented with impairment level findings and functional limitations as listed above. Examination: Demonstrable impairment in strength, balance, and range of motion with underlying impairments and functional limitations as documented above Presentation: Evolving Decision Makin moderate complexity Goals: Goals X1 week 1. Supine-Sit independent -NOT MET 2. Sit-Supine independent -NOT MET 3. Sit-Stand independent -NOT MET 4. Stand-Sit independent -NOT MET 5. Bed-Chair independent -NOT MET 6. Chair-Bed independent -NOT MET 7. Independent gait on level surface with use of least restrictive device for at least 300 feet without report of pain nor dyspnea -NOT MET 8. Independent stair negotiation while holding onto bilateral rails for at least 4 steps without report of pain nor dyspnea -MET 9. Independent with home exercise program -NOT MET 10. Good static and dynamic standing balance/tolerance -NOT MET DISCHARGE RECOMMENDATIONS: Discharge to home when medically cleared. Recommend a front-wheeled walker at this time for ambulation. Thank you very much for this referral. Brent Dumont, SPT Doctor of Physical Therapy Student [facility] Supervision provided by Angela Mobley PT, DPT, CLT [facility] [place], [place]
== END 2019-12-03 13:50 | disposition home or self-care (01) ==
LOC: MS 13:33 → PDS 13:33
PROVIDERS: Admitting Provider Student in an Organized Health Care Education/Training Program; Visit Provider Student in an Organized Health Care Education/Training Program
PROC: 0SRB04A Replacement of Left Hip Joint with Ceramic on Polyethylene Synthetic Substitute, Uncemented, Open Approach (ICD-10-PCS; CPT 27130; principal; 2019-12-02 11:30)
DX: M16.12 Unilateral primary osteoarthritis, left hip (principal); M25.552 Pain in left hip; Z96.642 Presence of left artificial hip joint; Z87.11 Personal history of peptic ulcer disease
CPT/HCPCS: 27130; C1776; 97162; 97530; NC; 73501; G0378; J0690; J1885; J2001; J2250; J2405

== ENCOUNTER 2019-12-18 09:35 | Outpatient (CLI) | payer BC, SELFPAY ==
--- NOTE | 2019-12-18 09:15 | DI.RAD_ITS ---
EXAM: XR HIP LT COMPLETE AP PELVIS CLINICAL HISTORY: 1ST POST OP TECHNIQUE: COMPARISON: XR PELVIS AP from 11/05/2019 FINDINGS: Two views were obtained. There is a total left hip joint replacement in position. Components appear well seated. Note is made of moderate degenerative changes of the right hip. IMPRESSION:
== END 2019-12-18 09:55 ==
PROVIDERS: Visit Provider Student in an Organized Health Care Education/Training Program
DX: Z96.642 Presence of left artificial hip joint (principal); Z47.1 Aftercare following joint replacement surgery; M16.11 Unilateral primary osteoarthritis, right hip
CPT/HCPCS: 73502

== ENCOUNTER 2020-06-20 09:13 | Outpatient (REF) | payer BC, SELFPAY ==
--- NOTE | 2020-06-20 07:30 | PAPFT_PTH ---
PATIENT: Eloisa Nascimento LOC: [facility] U#:[id number] AGE/SX: 55/F ROOM: RE06/20/[address]: Zhanna Iyer APRN : 1965 BED: DIS: 06/20/2020 SPEC #: [id number] RECD: 06/20/20 13:04 STATUS: KAYLEIGH CHIRINOS #: [id number] PATRICIO: 06/20/20 07:[address]: Zhanna Iyer DEPT: [facility] Cytology RECD BY: Cierra Lebron Tissues: 1 - CX/ENDOCX FOR PAP SMEARS Procedures: PAP THIN PREP/UVM Screening HPV DNA PROBE Comments: [id number]
== END 2020-06-20 09:33 ==
LOC: LBN 09:13
DX: Z12.4 Encounter for screening for malignant neoplasm of cervix (principal); Z11.51 Encounter for screening for human papillomavirus (HPV)
CPT/HCPCS: 88142; 87624

== ENCOUNTER 2020-07-22 03:17 | Outpatient (CLI) | payer BC, SELFPAY ==
--- NOTE | 2020-07-22 06:45 | DI.MAMMO_ITS ---
EXAM: MAMMO SCREENING CLINICAL HISTORY: screening,Z12.39 TECHNIQUE: Mammograms were interpreted according to the usual protocol including computer analysis w [email or web address] CAD system, tomosynthesis and C-view imaging. COMPARISON: 2012 through 2018 FINDINGS: The breasts are composed of scattered fibroglandular densities, Breast Density category B. No suspicious masses or suspicious microcalcifications are seen. No skin thickening or abnormal axillary lymph nodes are seen. There has been no significant change from prior exams. IMPRESSION: BI-RADS Category 1, Negative mammogram Yearly screening mammography is recommended. Breast Density - Category B, scattered fibroglandular densities. A negative radiographic report should not delay biopsy if a dominant or clinically suspicious mass is present. Up to ten percent of cancers are not identified on mammography. A negative report may reinforce clinical impression. Adenosis and dense breasts may obscure an underlying neoplasm. False positive reports average 6 to 10%. Patient will receive a letter notifying them of these results.
== END 2020-07-22 03:37 ==
DX: Z12.31 Encounter for screening mammogram for malignant neoplasm of breast (principal)
CPT/HCPCS: 77063; 77067

== ENCOUNTER 2020-09-07 14:19 | Outpatient (REF) | payer BC, SELFPAY | END 2020-09-07 14:39 | LOC: LBN 14:19 | PROVIDERS: Visit Provider Physician Assistant | DX: N39.0 Urinary tract infection, site not specified (principal) | CPT/HCPCS: 87086 ==

== ENCOUNTER 2020-09-09 11:28 | Emergency (ER) | payer BC, SELFPAY ==
[2020-09-09] VITALS (33 sets, daily range): BP systolic 113–146; BP diastolic 59–86; PULSE 84–117; RESP 16–18; TEMP 36.4–36.8; O2SAT 95–99
--- NOTE | 2020-09-09 11:44 | ED.GENADUL_ITS ---
Discharge Plan Disposition Patient Disposition: HOME Condition: Stable Discharge Details Clinical Impression: Left renal mass, Lung nodule Primary Care Provider: Zhanna Iyer ED Provider: Milly Cramer Home Meds and New Rx's Prescriptions: New ondansetron HCl [Zofran] 4 mg tablet 4 mg PO Q8H PRN (Reason: nausea and vomiting) Qty: 10 RF: 0 oxycodone-acetaminophen [Percocet] 5-325 mg tablet 1 tab PO Q6H PRN (Reason: pain) Qty: 7 RF: 0 Discontinued ciprofloxacin HCl [Cipro] 500 mg tablet 500 mg PO Q12H Qty: 20 RF: 0 metronidazole [Flagyl] 500 mg tablet 500 mg PO TID Qty: 30 RF: 0 No Action multivitamin [Daily Multi-Vitamin] 1 EACH tablet 1 ea PO DAILY Qty: 1 RF: 0 celecoxib 100 mg capsule 100 mg PO BID PRN (Reason: pain) Qty: 60 RF: 6 acetaminophen 500 mg tablet 1,000 mg PO Q8H PRN (Reason: pain) Qty: 90 RF: 3 Discharge Instructions Instructions: Flank Pain (ED) Additional Instructions: Take medications as directed. Follow-up with [facility] urology Dr. Espinoza as directed. He reports he will see you in the office on Saturday afternoon. Dr. Bryan Espinoza MD [address] [place] [address] , [place] [address] I also spoke with Dr. Heller with Oncology at [facility] [place]. He will want close follow-up with oncology after the biopsy is done or as directed by the urologist. Follow up with primary care provider in 3-5 days. Return to ED sooner if any worsening or concerns. Increase oral fluids. Referrals: Zhanna Iyer, [facility] [Primary Care Provider] - Discharge Data Discharge Date/Time-TO BE ENTERED AT DEPARTURE: 09/09/20 17:35 Medical Decision Making 55-year-old female presents to the ED with chief complaint of nausea vomiting. Initial symptoms began on Saturday night worsened on Saturday. She was seen 3 days ago on 09 06 at [facility] for some left-sided flank pain and hematuria and was diagnosed with diverticulitis. She was recently placed on Cipro and Flagyl. She states that after starting the Cipro and Flagyl she began vomiting. She is now unable to keep anything down. At this time she denies any pain no abdominal pain no back pain. She denies any diarrhea. No fever. She does have a past medical history of osteoarthritis, gastritis. 1342: Page out to [facility] [place] for nephrology consult. EXAM: CT ABDOMEN PELVIS WO CLINICAL HISTORY: LEFT FLANK PAIN, HEMATURIA, VOMITING. TECHNIQUE: Imaging Protocol: Axial computed tomography images with coronal and sagittal reformatted images were created and reviewed. Oral: / no COMPARISON: No exams were available for comparison FINDINGS: ABDOMEN: Lung Bases: 1.8 centimeter mass, left lower lobe, suspicious for metastasis. No pleural or pericardial effusions. Liver: Normal density. No measurable mass. Gallbladder and biliary tract: No radiodense calculus or dilation. Status post cholecystectomy. Pancreas: Normal density, no abnormal calcifications or inflammatory process. Spleen: Normal. Kidneys: Normal size, contour and axis. 3 millimeter nonobstructing stone in the mid right kidney. Large irregular mass involving the right kidney, measuring 14 cm in length x 10 cm transverse x 8.5 cm AP. There is marked enlargement of the left renal vein, consistent with a tumor thrombus. There are enlarged adjacent lymph nodes. Adrenal glands: The left adrenal appears enlarged. Lymph nodes: Mildly enlarged lymph nodes in the left para-aortic region. Abdominal Aorta: Abdominal portion non-dilated. Mild atherosclerotic changes. PELVIS: Bladder: Nearly empty. Bowel: No obstruction or bowel wall thickening. Sigmoid diverticulosis. No evidence of diverticulitis. Peritoneal cavity: No ascites, collection or mesenteric inflammatory response. Reproductive organs: Within normal limits. Bones: Left hip prosthesis creates artifact in the pelvis. Degenerative changes are seen in the right hip and lumbar spine. No lytic or blastic lesions. IMPRESSION: Large left renal mass with apparent tumor thrombus extension into the left renal vein. Adjacent enlarged lymph nodes as well as enlarged left adrenal gland. Metastasis to the left lower lobe. 1501: Spoke with Nephrology at [facility] [place] regarding patient, he reccommends consult with urology and inpatient admission. [facility] [place] transfer center at capacity for bed availability, will consult with [facility] 1510: Spoke with [facility] transfer center for possible transfer, urology paged. 1553: Spoke with Dr. London at [facility] with urology, he does not reccommend admission at this time but does recommend consult with medical oncology. 1555: [facility] [place] [place] re-paged because I feel this would be the most appropriate facility in terms of distance for patient follow up. 1624: Spoke with Dr. Grant, with [facility] [place] [place] oncology who recommends consult with urology. Transfer center to [facility]. Spoke with Dr. Espinoza with urology at [facility] who states that he recommends a CT chest abdomen pelvis with contrast and having images pushed to them and he will see patient Saturday afternoon in his office. Discussed results with patient who verbalizes understanding. Discussed follow- up care, verbalized understanding. Patient sent home with prescription for nausea medication and Percocet as needed for pain. Discussed stopping antibiotics verbalized understanding. This text was generated using M.dot dictation system, please disregard any oddities of phrase or misspellings. HPI General Mode of arrival: ambulatory . Date/Time Provider Initiated Documentation: 09/09/20 11:30 . Limitations to Documentation: no limitations . Information obtained by: patient . HPI Narrative: 55-year-old female presents to the ED with chief complaint of nausea vomiting. Initial symptoms began on Saturday night worsened on Saturday. She was seen 3 days ago on 09 06 at [facility] for some left-sided flank pain and hematuria and was diagnosed with diverticulitis. She was recently placed on Cipro and Flagyl. She states that after starting the Cipro and Flagyl she began vomiting. She is now unable to keep anything down. At this time she denies any pain no abdominal pain no back pain. She denies any diarrhea. No fever. She does have a past medical history of osteoarthritis, gastritis. Related Data Home Medications Medication Instructions Recorded Confirmed multivitamin [Daily Multi-Vitamin] 1 ea PO DAILY #1 11/08/15 09/07/20 acetaminophen 1,000 mg PO Q8H PRN #90 tab 12/03/19 06/20/20 celecoxib 100 mg capsule 100 mg PO BID PRN #60 cap 08/02/20 09/07/20 ondansetron HCl [Zofran] 4 mg PO Q8H PRN #10 tab 09/09/20 oxycodone-acetaminophen [Percocet] 1 tab PO Q6H PRN #7 tab 09/09/20 Previous Rx's Medication Instructions Recorded acetaminophen 1,000 mg PO Q8H PRN #90 tab 12/03/19 celecoxib 100 mg capsule 100 mg PO BID PRN #60 cap 08/02/20 ondansetron HCl [Zofran] 4 mg PO Q8H PRN #10 tab 09/09/20 oxycodone-acetaminophen [Percocet] 1 tab PO Q6H PRN #7 tab 09/09/20 Allergies Allergy/AdvReac Type Severity Reaction Status Date / Time Bupivacaine or Depo-Medrol AdvReac Mild 5-6 Uncoded 09/07/20 09:59 Inj circular, itchy, erythemic rash/ within 24 hr of inj General Stated Complaint: Nausea/Vomit/Diar REYNOLD: 3 Review of Systems Narrative: Constitutional: Negative for weight loss, alert and oriented, well groomed, normal body habitus, appears comfortable. HEENT: Denies trauma, headaches, blurry vision, nasal discharge, sore throat, trouble swallowing. Chest: Denies chest pain, palpitations, irregular rhythm, hypertension. Respiratory: Denies Shortness of breath, cough, hemoptysis. GI: Denies abdominal pain, diarrhea, constipation. Positive nausea vomiting. : Denies dysuria, rectal bleeding. Recent left flank pain and hematuria which has since resolved. Neuro: Denies dizziness, blurry vision, weakness, syncope, headache or facial numbness. Hematologic: Denies easy bruising, intolerance to heat or cold, hair loss. [facility] Medical History Chronic gastritis Duodenal ulcer Encounter for annual physical exam Lump of left thigh (05/29/18) Osteoarthritis Sebaceous cyst Surgical History Colonoscopy - MAC (09/18/17) History of section x2 History of surgical procedure I & D of cyst, left upper, posterior thigh History of total left hip arthroplasty (12/02/19) PROCEDURES ESOPHAGEAL DX PROC NEC, 05/08 Dr. Kelly Status post cholecystectomy (06/10/12) Family History Mother , age 79 Essential hypertension Heart disease Stroke Bacterial pneumonia Father , in his 50s Renal cancer Sister Heart disease Maternal Grandfather No problems noted. Paternal Grandfather No problems noted. Maternal Grandmother No problems noted. Paternal Grandmother No problems noted. Sister No problems noted. Sister Lupus Sister Anxiety Neoplasm Sister No problems noted. Son No problems noted. Son No problems noted. Son No problems noted. Social History Smoking/Tobacco Use Status: Former Tobacco Use Quit Date: 04/30/09 Second Hand Exposure: No Smoking risk assessment performed?: Yes Alcohol Intake: never Drug use: Never Substance use type: does not use Counseling given: No Counseling provided: none Caregiver/Support person: No Household members: children Housing: apartment Communication Needs: None Do you need help understanding health information?: Rarely Pets and animals: Yes Pets and animals: cat(s) Do you think of yourself as: straight/heterosexual Current gender identity: female What is your relationship status?: How often do you talk on the phone with friends or family?: three or more times per week How often do you get together with friends or relatives?: once per week How often do you attend orthodox or sikh services?: 4 or more times per year Do you belong to any clubs or organized social groups?: no Panel score (0-1 are the most socially isolated patients): 2 Kaylene/Alevism: Jain Special kaylene needs: No Seatbelt use: always Helmet use: Yes Helmet use: always 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 Appears stated age. Normal body habitus. Head: Normocephalic, no trauma. Eyes: Pupils PERRLA, Red reflex noted, EOM's intact. Eyelids symmetrical without lesions, discharge, or swelling. ENT: Bilateral TM's WNL, External ear normal to inspection, no mastoid TTP, swelling, or erythema, Nasal turbinates WNL, no nasal discharge. Normal dentition, Posterior pharynx WNL, no exudate. Chest: Tachycardia, normal S1, S2, distal pulses intact. Resp: Lungs clear to auscultation bilaterally, no wheezes, rales, or rhonchi. Abdomen: Soft nondistended, bowel sounds normoactive all 4 quadrants, nontender to palpation. Musculoskeletal: Normal gait, 5/5 strength to all four extremities. Skin: No suspicious rashes or lesions. Capillary refill less than 2 sec. Neurologic: Cranial nerves II-XII intact. Alert and oriented x 3. DTR's intact. Hematologic/Lymphatic: No ecchymosis, no lymphadenopathy. Course Vital Signs Vital signs: Vital Signs Temperature 36.4 C L 09/09/20 11:33 Pulse 117 H 09/09/20 11:33 Respiratory Rate 18 09/09/20 11:33 Blood Pressure 146/86 H 09/09/20 11:33 Pulse Oximetry 97 09/09/20 11:33 Temperature 36.4 C L 09/09/20 11:33 Pulse 117 H 09/09/20 11:33 Respiratory Rate 18 09/09/20 11:33 Respiratory Effort 09/09/20 11:37 Blood Pressure 146/86 H 09/09/20 11:33 Pulse Oximetry 97 09/09/20 11:33 Oxygen Delivery Method Room Air 09/09/20 11:33 Oxygen Flow Rate 0 09/09/20 11:33 Pain Level 0 09/09/20 11:33
[2020-09-09] MEDS: Ondansetron 4 MG/2 ML VIAL IVP (11:47)
[2020-09-09] MEDS: Normal Saline 1,000 ML 1000 ML IV (11:47)
[2020-09-09 11:51] LABS: Abs Immature Grans 0.08 10^3/uL (0.0-0.06); Absolute Eosinophil Count 0.03 10^3/uL (0.0-0.7); Absolute Lymphocyte Count 1.47 10^3/uL (1.2-3.4); Absolute Monocyte Count 0.75 10^3/uL (0.1-0.8); Absolute Neutrophil Count 12.63 10^3/uL (1.2-6.7); Basophils % 0.5; Eosinophils % 0.2; HCT 41.3 % (36.0-46.0); HGB 12.9 g/dL (11.2-15.7); Immature Grans % 0.5; Lymphocytes % 9.8; MCH 26.7 pg (27.0-33.0); MCHC 31.2 % (32.0-36.0); MCV 85.3 fL (80-95); MPV 10.4 fL (8.0-11.0); Nucleated RBC 0 %; Platelet Count 464 10^3/uL (130-400); RBC 4.84 10^6/uL (3.93-5.22); RDW 13.7 % (11.7-14.6); RDW-SD 42.6 fL; WBC 15.03 10^3/uL (4.4-10.8)
[2020-09-09 12:06] LABS: ALT 19 U/L (14-59); AST 15 U/L (15-37); Albumin 3.5 g/dL (3.4-5.0); Alkaline Phosphatase 146 U/L (46-116); Anion Gap 21.2 mmol/L (3-11); BUN 16 mg/dL (7-18); Bilirubin, Total 0.5 mg/dL (0.2-1.0); CO2 17.8 mmol/L (21.0-32.0); CREATININE 1.19 mg/dL (0.55-1.02); Calcium 9.7 mg/dL (8.5-10.1); Chloride 98 mmol/L (98-107); Estimated GFR 46.75 (mL/min/1.73m2); Glucose 112 mg/dL (74-106); Lipase 38 U/L (73-393); Magnesium 1.7 mg/dL (1.8-2.4); Potassium 3.4 mmol/L (3.5-5.1); Sodium 137 mmol/L (136-145); Total Protein 8.9 g/dL (6.4-8.2)
[2020-09-09 12:13] LABS: Absolute Basophil Count 0.08 10^3/uL (0.0-0.2)
--- NOTE | 2020-09-09 12:47 | DI.CT_ITS ---
EXAM: CT ABDOMEN PELVIS WO CLINICAL HISTORY: LEFT FLANK PAIN, HEMATURIA, VOMITING. TECHNIQUE: Imaging Protocol: Axial computed tomography images with coronal and sagittal reformatted images were created and reviewed. Oral: / no COMPARISON: No exams were available for comparison FINDINGS: ABDOMEN: Lung Bases: 1.8 centimeter mass, left lower lobe, suspicious for metastasis. No pleural or pericardi al effusions. Liver: Normal density. No measurable mass. Gallbladder and biliary tract: No radiodense calculus or dilation. Status post cholecystectomy. Pancreas: Normal density, no abnormal calcifications or inflammatory process. Spleen: Normal. Kidneys: Normal size, contour and axis. 3 millimeter nonobstructing stone in the mid right kidney. L arge irregular mass involving the right kidney, measuring 14 cm in length x 10 cm transverse x 8.5 cm AP. There is marked enlargement of the left renal vein, consistent with a tumor thrombus. There ar e enlarged adjacent lymph nodes. Adrenal glands: The left adrenal appears enlarged. Lymph nodes: Mildly enlarged lymph nodes in the left para-aortic region. Abdominal Aorta: Abdominal portion non-dilated. Mild atherosclerotic changes. PELVIS: Bladder: Nearly empty. Bowel: No obstruction or bowel wall thickening. Sigmoid diverticulosis. No evidence of diverticuliti s. Peritoneal cavity: No ascites, collection or mesenteric inflammatory response. Reproductive organs: Within normal limits. Bones: Left hip prosthesis creates artifact in the pelvis. Degenerative changes are seen in the righ t hip and lumbar spine. No lytic or blastic lesions. IMPRESSION: Large left renal mass with apparent tumor thrombus extension into the left renal vein. Adjacent enla rged lymph nodes as well as enlarged left adrenal gland. Metastasis to the left lower lobe. RADIATION DOSE DELIVERED: 595.5mGy.cm Total DLP DATA REPOSITORY: All CT scans at this facility are submitted to the National Radiology Data Registry (NRDR) Dose Index Registry (DIR) with the [employer] (ACR). RADIATION OPTIMIZATION: All CT scans at this facility use at least one of these dose optimization te chniques: automated exposure control; mA and/or kV adjustment per patient size (includes targeted exa ms where dose is matched to clinical indication); or iterative reconstruction.
[2020-09-09 12:59] LABS: Bilirubin Small (Negative); Blood Moderate (Negative); Clarity Clear (Clear); Glucose Negative (Negative); Ketones >=160 mg/dL (Negative); Leukocyte Esterase Negative (Negative); Nitrite Negative (Negative); Specific Gravity >= 1.030 (1.005-1.025); Urobilinogen 0.2 EU/dL (Up TO 0.2)
[2020-09-09 13:12] LABS: Bacteria Few HPF (Negative); Crystals Negative HPF (Negative); Epithelial Cells Few HPF (Negative); Mucus Trace (Negative); RBC >50 HPF (0-2); WBC 0-2 HPF (0-5)
[2020-09-09 13:13] LABS: C & S Indicated? No; Casts 20-50 Hyaline LPF (Negative)
[2020-09-09] MEDS: Calcium Carbonate *TUMS* 500 MG CHEW PO (14:03)
--- NOTE | 2020-09-09 16:30 | DI.CT_ITS ---
EXAM: CT CHEST/ABD/PEL W CLINICAL HISTORY: Renal mass, lung nodule TECHNIQUE: Imaging Protocol: Axial computed tomography images with coronal and sagittal reformatted images were created and reviewed CONTRAST MATERIAL: Intravenous: Omnipaque 350 Contrast volume:100 mL Oral: No COMPARISON: CT CT ABDOMEN PELVIS WO from 09/09/2020 FINDINGS: CHEST: Tracheobronchial tree: Patent where visualized. Mediastinum and Kendra: Mediastinal and left hilar adenopathy. There is an enlarged right paratracheal lymph node measuring 1.4 cm. There is a 1.5 cm left hilar lymph node. Pulmonary parenchyma: There are several pulmonary nodules present. The largest measures 1.5 cm and i s in the lingula. Centrilobular emphysematous changes are seen in the lungs. Pleura: No effusion or pneumothorax. Biapical pleural thickening. Heart: The heart is not dilated. No coronary artery calcifications are seen. No pericardial effusion. Aorta: Thoracic aorta non-dilated. Mild atherosclerosis. Lymph nodes: Please see above. Bones:Degenerative changes are seen in the spine.No suspicious lytic or sclerotic lesions. Soft tissues: Unremarkable. ABDOMEN: Liver: Normal density. No measurable mass. Portal, Superior Mesenteric, and Splenic Veins: Unremarkable. Gallbladder and Biliary Tract: Status post cholecystectomy. No significant biliary ductal dilatation . Pancreas: Normal density, no abnormal calcifications or inflammatory process. Spleen: Normal. Adrenals: There is a 1.5 cm left adrenal nodule. The right adrenal gland is unremarkable. Kidneys: There is a 14.0 x 12.5 cm multilobulated left renal mass. There is soft tissue in the left retroperitoneum which may represent adenopathy. There is infiltration of the left perirenal fat and anterior pararenal fascia. There is thrombus seen in the left renal vein. There also appears to be thrombus in the proximal left gonadal vein. Varices are seen in the left pelvis and abdomen. There is a nonobstructing stone in the right kidney. Abdominal Aorta: There is mild atherosclerosis. No aneurysmal dilatation. Bowel: No obstruction or bowel wall thickening. There is diverticulosis of the colon but no evidence of acute diverticulitis. There is no evidence of acute appendicitis. Peritoneal Cavity: No significant ascites is present. There is no pneumoperitoneum. Lymph Nodes: There is retroperitoneal adenopathy present. Bones: The patient has a total left arthroplasty which causes artifact in the pelvis. There are dege nerative changes seen in the right hip and lumbar spine. No suspicious lytic or sclerotic lesions ar e present. Soft Tissues: Unremarkable. PELVIS: Bladder: Symmetric distention, no gross wall thickening. Reproductive Organs: Unremarkable as visualized. Lymph Nodes: Extensive retroperitoneal adenopathy as described above. Bones: Degenerative changes in the spine. Total left arthroplasty. No suspicious lytic or sclerotic lesions are present. IMPRESSION: 1. 14 x 12.5 cm multilobulated left renal mass with retroperitoneal adenopathy and left renal vein an d left gonadal vein thrombosis. The findings are most consistent with metastatic renal carcinoma. 2. Multiple pulmonary nodules with mediastinal and left hilar adenopathy consistent with metastatic r enal disease. 3. RADIATION DOSE DELIVERED: 846.31mGy.cm Total DLP DATA REPOSITORY: All CT scans at this facility are submitted to the National Radiology Data Registry (NRDR) Dose Index Registry (DIR) with the [employer] (ACR). RADIATION OPTIMIZATION: All CT scans at this facility use at least one of these dose optimization te chniques: automated exposure control; mA and/or kV adjustment per patient size (includes targeted exa ms where dose is matched to clinical indication); or iterative reconstruction.
[2020-09-09] MEDS: Normal Saline - Diluent 50 ML VIAL IV (16:47)
[2020-09-09] MEDS: Omnipaque 350 MG/ML 100 ML BTL IJ (16:47)
[2020-09-09] MEDS: Normal Saline Flush 10 ML SYR IVP (16:48)
--- NOTE | 2020-09-09 17:48 | DI.VRAD_ITS ---
PROCEDURE INFORMATION: Exam: CT Chest With Contrast; Diagnostic Exam date and time: 09/09/2020 4:35 PM Age: 55 years old Clinical indication: Other: Renal mass, lung nodule; Prior surgery; Surgery date: 6+ months; Surgery type: Gallbladder TECHNIQUE: Imaging protocol: Diagnostic computed tomography of the chest with intravenous contrast. Radiation optimization: All CT scans at this facility use at least one of these dose optimization techniques: automated exposure control; mA and/or kV adjustment per patient size (includes targeted exams where dose is matched to clinical indication); or iterative reconstruction. Contrast material: OMNIPAQUE 350; Contrast volume: 100 ml; Contrast route: INTRAVENOUS (IV); COMPARISON: No relevant prior studies available. FINDINGS: Lungs: Emphysematous lung disease. 1.3 cm left upper lobe anterior pleural-based lung nodule series 6, image 261. 1.4 cm left lower lobe lung nodule series 6, image 286. 0.5 cm lung nodule periphery of the left lung series 6, image 308. 1.5 cm, 1.0 cm, and 0.2 cm nodule in the lingula. Additional subcentimeter nodules in the periphery of the left lung. Pleural space: Biapical pleural thickening. Heart: Unremarkable. No cardiomegaly. No pericardial effusion. Aorta: Atherosclerotic disease. Lymph nodes: Left hilar adenopathy. Bones/joints: Multilevel degenerative changes of the thoracic spine. Soft tissues: Unremarkable. IMPRESSION: Multiple left pulmonary nodules with left hilar adenopathy consistent with metastatic renal cancer as discussed above. PROCEDURE INFORMATION: Exam: CT Abdomen And Pelvis With Contrast Exam date and time: 09/09/2020 4:35 PM Age: 55 years old Clinical indication: Other: Renal mass, lung nodule; Prior surgery; Surgery date: 6+ months; Surgery type: Gallbladder TECHNIQUE: Imaging protocol: Computed tomography of the abdomen and pelvis with intravenous contrast. Radiation optimization: All CT scans at this facility use at least one of these dose optimization techniques: automated exposure control; mA and/or kV adjustment per patient size (includes targeted exams where dose is matched to clinical indication); or iterative reconstruction. Contrast material: OMNIPAQUE 350; Contrast volume: 100 ml; Contrast route: INTRAVENOUS (IV); COMPARISON: No relevant prior studies available. FINDINGS: Liver: Normal. No mass. Gallbladder and bile ducts: Cholecystectomy. Pancreas: Normal. No ductal dilation. Spleen: Normal. No splenomegaly. Adrenal glands: 1.5 cm left adrenal nodule. Kidneys and ureters: Right nephrolithiasis. 14.0 by 12.5 cm multilobulated left renal mass with left hydronephrosis, left retroperitoneal adenopathy. Infiltration of the left perirenal fat and the anterior perirenal fascia. Left renal varices. Left peripelvic varices. Stomach and bowel: Diverticulosis. Appendix: No evidence of appendicitis. Intraperitoneal space: Unremarkable. No free air. No significant fluid collection. Vasculature: Left renal vein thrombosis. Atherosclerotic disease. Lymph nodes: Extensive retroperitoneal adenopathy. Urinary bladder: Contracted urinary bladder. Reproductive: Unremarkable as visualized. Bones/joints: Total left hip arthroplasty. Degraded image quality through the pelvis secondary to left hip prosthesis. Degenerative changes of the right hip. Multilevel degenerative changes of the thoracic and lumbar spine. Soft tissues: Unremarkable. IMPRESSION: 1. Large multilobulated left solid renal mass with left hydronephrosis, retroperitoneal adenopathy, left renal vein thrombosis, and pulmonary metastases consistent with metastatic renal carcinoma. 2. Additional findings as discussed above. Dictated and Authenticated by: Lucila Kimble MD. Ordering:KRISTINE Atkins MD
== END 2020-09-09 17:35 | disposition home or self-care (01) ==
PROVIDERS: Emergency Provider Registered Nurse Emergency
DX: N28.89 Other specified disorders of kidney and ureter (principal); R91.8 Other nonspecific abnormal finding of lung field; R11.2 Nausea with vomiting, unspecified
CPT/HCPCS: 36415; 74177; 80053; 83690; 96361; 96374; 99285; 71260; 74176; 81003; 81015; 83735; 85025; J2405; J3490

== ENCOUNTER 2020-10-05 01:17 | Outpatient (CLI) | payer BC, SELFPAY ==
--- NOTE | 2020-10-05 | DI.MRI_ITS ---
EXAM: MR BRAIN WO/W CLINICAL HISTORY: LT RENAL CA,C64.2,METASTATIC RENAL CA,? BRAIN METS TECHNIQUE: Multiplanar multisequence MRI of the brain was performed. Both noninfused and contrast i nfused sequences were performed. IV Contrast injected was 12 cc Dotarem. COMPARISON: No exams were available for comparison FINDINGS: CEREBRAL PARENCHYMA: No evidence of intracranial hemorrhage, mass effect nor shift of midline structu re. No extraaxial fluid collections. Ventricles are not enlarged nor shifted. There is no significant focal signal abnormality in the cerebellar hemispheres nor within the melody, m idbrain, and thalami. There is few small punctate nonspecific foci of signal abnormality in the parent supraventricular whi te matter, not consistent with metastatic disease. There are no ring enhancing lesions in the brain. There is no abnormal meningeal enhancement. PITUITARY GLAND: No mass nor parasellar abnormality. No obvious abnormality in the cavernous sinuses. FLOW VOIDS: The expected flow void are noted. No evidence of obvious aneurysm nor obvious vascular ma lformation. PARANASAL SINUSES: The visualized paranasal sinuses appear unremarkable. ORBITS: No obvious abnormal findings. IMPRESSION: 1. No significant intracranial findings on this MRI scan of the brain. 2. No abnormal enhancing intracranial finding. No ring enhancing lesions and no abnormal meningeal e nhancement. DATA REPOSITORY:
[2020-10-05 10:30] LABS: Abs Immature Grans 0.02 10^3/uL (0.0-0.06); Absolute Basophil Count 0.08 10^3/uL (0.0-0.2); Absolute Eosinophil Count 0.27 10^3/uL (0.0-0.7); Absolute Lymphocyte Count 2.06 10^3/uL (1.2-3.4); Absolute Monocyte Count 0.73 10^3/uL (0.1-0.8); Absolute Neutrophil Count 6.07 10^3/uL (1.2-6.7); Basophils % 0.9; Eosinophils % 2.9; HCT 33.4 % (36.0-46.0); HGB 10.2 g/dL (11.2-15.7); Immature Grans % 0.2; Lymphocytes % 22.3; MCHC 30.5 % (32.0-36.0); MCV 85.2 fL (80-95); MPV 9.9 fL (8.0-11.0); Monocytes % 7.9; Neutrophils % 65.8; Nucleated RBC 0 %; Platelet Count 355 10^3/uL (130-400); RBC 3.92 10^6/uL (3.93-5.22); RDW 14.8 % (11.7-14.6); RDW-SD 45.5 fL; WBC 9.23 10^3/uL (4.4-10.8)
--- NOTE | 2020-10-05 10:30 | DI.NM_ITS ---
EXAM: [place] BONE SCAN WHOLE BODY GRP CLINICAL HISTORY: TECHNIQUE: Injected Dose: 25 mCi Tc-99m MDP Delayed Images: 2-3 hours. COMPARISON: NM Post CCK from 04/15/[address] CHEST/ABD/PEL W from 09/09/[address] CHEST/ABD/PEL W from 09/09/2020 FINDINGS: There is a photopenic zone in the left hip consistent with prosthesis. There is no abnormal focus of increased activity in the opposite-right hip at the acetabular level.. This probably corresponds to what appears to be prominent degenerative subarticular cyst at this location on the CT scan +advance d narrowing of the superior hip joint space at this level. There does not appear to be prominent abn ormal uptake seen slightly lower down in the right hip acetabulum where there is a larger but smoothe r-nonaggressive appearing bone lesion. No significant abnormal uptake in the spinal column and ribcage is nor in the sacrum and remainder of the pelvis. Degenerative uptake in the shoulders girdles noted. IMPRESSION: 1. Abnormal uptake in the right hip which is most probably degenerative as described above. This is mostly in the superior aspect of the joint where most of the degenerative changes are, seen on recent CT scan. There does not appear to be abnormal increased radiopharmaceutical uptake seen more inferi natasha in the right hip acetabulum where there is a compressive but well-defined lucency in the bone at this level. 2. Photopenic zone in the left hip consistent with prosthesis. 3. No evidence of obvious osseous metastatic disease. DATA REPOSITORY:
[2020-10-05 11:14] LABS: ALT 64 U/L (14-59); AST 40 U/L (15-37); Albumin 3.1 g/dL (3.4-5.0); Alkaline Phosphatase 219 U/L (46-116); Anion Gap 9.8 mmol/L (3-11); BUN 25 mg/dL (7-18); Bilirubin, Total 0.3 mg/dL (0.2-1.0); CO2 27.2 mmol/L (21.0-32.0); CREATININE 0.87 mg/dL (0.55-1.02); Calcium 9.2 mg/dL (8.5-10.1); Chloride 102 mmol/L (98-107); FREE T4 1.21 ng/dL (0.76-1.46); Glucose 105 mg/dL (74-106); Sodium 139 mmol/L (136-145); TSH 2.64 uIU/mL (0.36-3.74); Total Protein 7.6 g/dL (6.4-8.2)
[2020-10-05] MEDS: Normal Saline Flush 10 ML SYR IVP (12:01)
[2020-10-05] MEDS: Gadoterate meglumine 20 ML VIAL 12 ML IVP (12:02)
== END 2020-10-05 01:37 ==
PROVIDERS: Internal Medicine; Visit Provider Urology
DX: R84.8 Other abnormal findings in specimens from respiratory organs and thorax (principal); Z96.642 Presence of left artificial hip joint; C64.2 Malignant neoplasm of left kidney, except renal pelvis; Z79.899 Other long term (current) drug therapy
CPT/HCPCS: 36415; 70553; 78306; 80053; 84439; 84443; 85025

== ENCOUNTER 2020-11-01 03:09 | Outpatient (CLI) | payer BC, SELFPAY ==
[2020-11-01 07:23] LABS: Abs Immature Grans 0.03 10^3/uL (0.0-0.06); Absolute Eosinophil Count 0.42 10^3/uL (0.0-0.7); Absolute Monocyte Count 0.58 10^3/uL (0.1-0.8); Absolute Neutrophil Count 5.07 10^3/uL (1.2-6.7); Basophils % 1.3; Eosinophils % 5.3; HCT 32.6 % (36.0-46.0); Immature Grans % 0.4; Lymphocytes % 22.5; MCH 25.7 pg (27.0-33.0); MCHC 30.7 % (32.0-36.0); MCV 83.8 fL (80-95); MPV 9.7 fL (8.0-11.0); Monocytes % 7.3; Neutrophils % 63.2; Nucleated RBC 0 %; Platelet Count 414 10^3/uL (130-400); RBC 3.89 10^6/uL (3.93-5.22); RDW 15.5 % (11.7-14.6)
[2020-11-01 07:45] LABS: ALT 43 U/L (14-59); AST 29 U/L (15-37); Alkaline Phosphatase 265 U/L (46-116); Anion Gap 9.5 mmol/L (3-11); BUN 16 mg/dL (7-18); Bilirubin, Total 0.4 mg/dL (0.2-1.0); CO2 28.5 mmol/L (21.0-32.0); Calcium 9.2 mg/dL (8.5-10.1); Chloride 103 mmol/L (98-107); Estimated GFR 57.15 (mL/min/1.73m2); FREE T4 1.27 ng/dL (0.76-1.46); Glucose 108 mg/dL (74-106); Potassium 3.8 mmol/L (3.5-5.1); Sodium 141 mmol/L (136-145); TSH 4.79 uIU/mL (0.36-3.74); Total Protein 8.6 g/dL (6.4-8.2)
== END 2020-11-01 03:10 | disposition home or self-care (01) ==
LOC: LBO 03:09
PROVIDERS: Visit Provider Internal Medicine
DX: C64.2 Malignant neoplasm of left kidney, except renal pelvis (principal); Z79.899 Other long term (current) drug therapy
CPT/HCPCS: 36415; 80053; 84439; 84443; 85025

== ENCOUNTER 2020-11-21 02:56 | Outpatient (CLI) | payer BC, SELFPAY ==
[2020-11-21 14:22] LABS: Abs Immature Grans 0.03 10^3/uL (0.0-0.06); Absolute Lymphocyte Count 2.42 10^3/uL (1.2-3.4); Absolute Monocyte Count 0.56 10^3/uL (0.1-0.8); Absolute Neutrophil Count 5.45 10^3/uL (1.2-6.7); Basophils % 1.1; Eosinophils % 6.6; HCT 36.6 % (36.0-46.0); HGB 11.2 g/dL (11.2-15.7); Immature Grans % 0.3; Lymphocytes % 26.4; MCH 25.5 pg (27.0-33.0); MCHC 30.6 % (32.0-36.0); MCV 83.4 fL (80-95); MPV 10.1 fL (8.0-11.0); Monocytes % 6.1; Neutrophils % 59.5; Nucleated RBC 0 %; Platelet Count 376 10^3/uL (130-400); RBC 4.39 10^6/uL (3.93-5.22); RDW 16.2 % (11.7-14.6); RDW-SD 49.1 fL; WBC 9.16 10^3/uL (4.4-10.8)
[2020-11-21 14:58] LABS: ALT 54 U/L (14-59); AST 33 U/L (15-37); Albumin 3.2 g/dL (3.4-5.0); Alkaline Phosphatase 205 U/L (46-116); Anion Gap 9.1 mmol/L (3-11); BUN 29 mg/dL (7-18); Bilirubin, Total 0.2 mg/dL (0.2-1.0); CO2 28.9 mmol/L (21.0-32.0); CREATININE 0.9 mg/dL (0.55-1.02); Calcium 9.2 mg/dL (8.5-10.1); Calculated LDL 85 mg/dL (<100); Chloride 101 mmol/L (98-107); Cholesterol 172 mg/dL (<200); Glucose 122 mg/dL (74-106); HDL Cholesterol 68 mg/dL (40-60); Potassium 3.7 mmol/L (3.5-5.1); Sodium 139 mmol/L (136-145); TSH 6.45 uIU/mL (0.36-3.74); Total Protein 8.1 g/dL (6.4-8.2); Triglyceride 98 mg/dL (<150)
[2020-11-21 15:24] LABS: FREE T4 1.18 ng/dL (0.76-1.46)
== END 2020-11-21 02:57 | disposition home or self-care (01) ==
LOC: LBO 02:56
PROVIDERS: Visit Provider Internal Medicine
DX: Z00.00 Encounter for general adult medical examination without abnormal findings (principal); M16.12 Unilateral primary osteoarthritis, left hip; K29.50 Unspecified chronic gastritis without bleeding; Z13.220 Encounter for screening for lipoid disorders; Z13.29 Encounter for screening for other suspected endocrine disorder
CPT/HCPCS: 36415; 80053; 80061; 84439; 84443; 85025

== ENCOUNTER 2020-12-01 09:39 | Outpatient (CLI) | payer BC, SELFPAY ==
--- NOTE | 2020-12-01 08:45 | DI.RAD_ITS ---
EXAM: XR HIP LT AP LAT ONLY CLINICAL HISTORY: annual f/u L BARAK. TECHNIQUE: 2D digital imaging was performed. COMPARISON: CR XR HIP LT COMPLETE AP PELVIS from 12/18/2019 FINDINGS: BONES: There are stable post operative changes present. No fracture or dislocation. JOINTS: The joint spaces are well maintained. No joint effusion is present. SOFT TISSUE: Normal. IMPRESSION: Stable postoperative changes. DATA REPOSITORY: RADIATION DOSE DELIVERED:
== END 2020-12-01 09:40 | disposition home or self-care (01) ==
LOC: DIORS 09:40
PROVIDERS: Visit Provider Student in an Organized Health Care Education/Training Program
DX: Z96.642 Presence of left artificial hip joint (principal)
CPT/HCPCS: 73502

== ENCOUNTER 2020-12-12 03:12 | Outpatient (CLI) | payer BC, SELFPAY ==
[2020-12-12 13:17] LABS: Abs Immature Grans 0.02 10^3/uL (0.0-0.06); Absolute Basophil Count 0.16 10^3/uL (0.0-0.2); Absolute Eosinophil Count 0.76 10^3/uL (0.0-0.7); Absolute Lymphocyte Count 3.13 10^3/uL (1.2-3.4); Absolute Monocyte Count 0.71 10^3/uL (0.1-0.8); Absolute Neutrophil Count 5.04 10^3/uL (1.2-6.7); Basophils % 1.6; Eosinophils % 7.7; HCT 39.7 % (36.0-46.0); HGB 12.2 g/dL (11.2-15.7); Immature Grans % 0.2; Lymphocytes % 31.9; MCH 25.9 pg (27.0-33.0); MCHC 30.7 % (32.0-36.0); MCV 84.3 fL (80-95); MPV 9.9 fL (8.0-11.0); Monocytes % 7.2; Neutrophils % 51.4; Nucleated RBC 0 %; Platelet Count 321 10^3/uL (130-400); RBC 4.71 10^6/uL (3.93-5.22); RDW 17.5 % (11.7-14.6); RDW-SD 53.9 fL; WBC 9.82 10^3/uL (4.4-10.8)
[2020-12-12 13:44] LABS: ALT 68 U/L (14-59); AST 34 U/L (15-37); Albumin 3.5 g/dL (3.4-5.0); Alkaline Phosphatase 181 U/L (46-116); Anion Gap 7.9 mmol/L (3-11); BUN 25 mg/dL (7-18); Bilirubin, Total 0.3 mg/dL (0.2-1.0); CO2 29.1 mmol/L (21.0-32.0); CREATININE 0.9 mg/dL (0.55-1.02); Calcium 9.4 mg/dL (8.5-10.1); Chloride 102 mmol/L (98-107); FREE T4 1.03 ng/dL (0.76-1.46); Glucose 87 mg/dL (74-106); Potassium 3.6 mmol/L (3.5-5.1); Sodium 139 mmol/L (136-145); TSH 5.06 uIU/mL (0.36-3.74); Total Protein 8.7 g/dL (6.4-8.2)
== END 2020-12-12 03:13 | disposition home or self-care (01) ==
LOC: LBO 03:12
PROVIDERS: Visit Provider Internal Medicine
DX: C64.2 Malignant neoplasm of left kidney, except renal pelvis (principal); Z79.899 Other long term (current) drug therapy
CPT/HCPCS: 36415; 80053; 84439; 84443; 85025

== ENCOUNTER 2020-12-28 09:49 | Outpatient (CLI) | payer BC, SELFPAY ==
[2020-12-29 14:16] LABS: COVID-19 RT-PCR UVMMC Result Negative (Negative)
== END 2020-12-28 09:50 | disposition home or self-care (01) ==
LOC: LBO 09:49
DX: Z20.822 Contact with and (suspected) exposure to COVID-19 (principal)
CPT/HCPCS: U0003

== ENCOUNTER 2021-01-02 04:26 | Outpatient (CLI) | payer BC, SELFPAY ==
[2021-01-02 13:18] LABS: Abs Immature Grans 0.02 10^3/uL (0.0-0.06); Absolute Basophil Count 0.14 10^3/uL (0.0-0.2); Absolute Lymphocyte Count 2.26 10^3/uL (1.2-3.4); Absolute Monocyte Count 0.55 10^3/uL (0.1-0.8); Absolute Neutrophil Count 4.78 10^3/uL (1.2-6.7); Basophils % 1.7; Eosinophils % 4.9; HCT 41.7 % (36.0-46.0); HGB 13.1 g/dL (11.2-15.7); Immature Grans % 0.2; Lymphocytes % 27.7; MCH 26.3 pg (27.0-33.0); MCHC 31.4 % (32.0-36.0); MCV 83.7 fL (80-95); MPV 10.3 fL (8.0-11.0); Monocytes % 6.7; Neutrophils % 58.8; Nucleated RBC 0 %; Platelet Count 319 10^3/uL (130-400); RBC 4.98 10^6/uL (3.93-5.22); RDW 17.7 % (11.7-14.6); RDW-SD 53.9 fL; WBC 8.15 10^3/uL (4.4-10.8)
[2021-01-02 14:34] LABS: ALT 56 U/L (14-59); AST 38 U/L (15-37); Albumin 3.8 g/dL (3.4-5.0); Alkaline Phosphatase 160 U/L (46-116); Anion Gap 11.5 mmol/L (3-11); BUN 22 mg/dL (7-18); Bilirubin, Total 0.3 mg/dL (0.2-1.0); CO2 27.5 mmol/L (21.0-32.0); Calcium 9.5 mg/dL (8.5-10.1); Chloride 102 mmol/L (98-107); Estimated GFR 57.15 (mL/min/1.73m2); FREE T4 1.32 ng/dL (0.76-1.46); Glucose 94 mg/dL (74-106); Potassium 3.9 mmol/L (3.5-5.1); Sodium 141 mmol/L (136-145); TSH 2.68 uIU/mL (0.36-3.74); Total Protein 8.5 g/dL (6.4-8.2)
== END 2021-01-02 04:27 | disposition home or self-care (01) ==
LOC: LBO 04:26
PROVIDERS: Visit Provider Internal Medicine
DX: C64.2 Malignant neoplasm of left kidney, except renal pelvis (principal); Z79.899 Other long term (current) drug therapy
CPT/HCPCS: 36415; 80053; 84439; 84443; 85025

== ENCOUNTER 2021-01-30 02:27 | Outpatient (CLI) | payer BC, SELFPAY ==
[2021-01-30 13:36] LABS: Abs Immature Grans 0.03 10^3/uL (0.0-0.06); Absolute Basophil Count 0.12 10^3/uL (0.0-0.2); Absolute Lymphocyte Count 2.77 10^3/uL (1.2-3.4); Absolute Monocyte Count 0.66 10^3/uL (0.1-0.8); Absolute Neutrophil Count 6.01 10^3/uL (1.2-6.7); Basophils % 1.2; HGB 13.4 g/dL (11.2-15.7); Immature Grans % 0.3; Lymphocytes % 27.5; MCH 27.5 pg (27.0-33.0); MCHC 31.9 % (32.0-36.0); MCV 86.2 fL (80-95); MPV 9.8 fL (8.0-11.0); Monocytes % 6.5; Neutrophils % 59.5; Nucleated RBC 0 %; Platelet Count 300 10^3/uL (130-400); RBC 4.87 10^6/uL (3.93-5.22); RDW 17.3 % (11.7-14.6); RDW-SD 55.3 fL; WBC 10.09 10^3/uL (4.4-10.8)
[2021-01-30 13:57] LABS: ALT 74 U/L (14-59); AST 39 U/L (15-37); Albumin 3.7 g/dL (3.4-5.0); Alkaline Phosphatase 137 U/L (46-116); Anion Gap 9.7 mmol/L (3-11); BUN 21 mg/dL (7-18); Bilirubin, Total 0.3 mg/dL (0.2-1.0); CO2 30.3 mmol/L (21.0-32.0); CREATININE 0.7 mg/dL (0.55-1.02); Calcium 9.7 mg/dL (8.5-10.1); Chloride 103 mmol/L (98-107); FREE T4 0.99 ng/dL (0.76-1.46); Glucose 91 mg/dL (74-106); Potassium 3.6 mmol/L (3.5-5.1); Sodium 143 mmol/L (136-145); TSH 8.42 uIU/mL (0.36-3.74); Total Protein 8.5 g/dL (6.4-8.2)
== END 2021-01-30 02:28 | disposition home or self-care (01) ==
LOC: LBO 02:27
PROVIDERS: Visit Provider Internal Medicine
DX: C64.2 Malignant neoplasm of left kidney, except renal pelvis (principal); Z79.899 Other long term (current) drug therapy
CPT/HCPCS: 36415; 80053; 84439; 84443; 85025

== ENCOUNTER 2021-02-21 03:21 | Outpatient (CLI) | payer BC, SELFPAY ==
[2021-02-21 13:20] LABS: Abs Immature Grans 0.02 10^3/uL (0.0-0.06); Absolute Basophil Count 0.13 10^3/uL (0.0-0.2); Absolute Eosinophil Count 0.37 10^3/uL (0.0-0.7); Absolute Lymphocyte Count 3.84 10^3/uL (1.2-3.4); Absolute Monocyte Count 0.31 10^3/uL (0.1-0.8); Absolute Neutrophil Count 5.55 10^3/uL (1.2-6.7); Basophils % 1.3; Eosinophils % 3.6; HCT 45.7 % (36.0-46.0); HGB 14.7 g/dL (11.2-15.7); Immature Grans % 0.2; Lymphocytes % 37.6; MCH 26.9 pg (27.0-33.0); MCHC 32.2 % (32.0-36.0); MCV 83.5 fL (80-95); MPV 9.8 fL (8.0-11.0); Neutrophils % 54.3; Nucleated RBC 0 %; Platelet Count 386 10^3/uL (130-400); RBC 5.47 10^6/uL (3.93-5.22); RDW 15.9 % (11.7-14.6); RDW-SD 47.4 fL; WBC 10.22 10^3/uL (4.4-10.8)
[2021-02-21 13:46] LABS: ALT 82 U/L (14-59); AST 53 U/L (15-37); Albumin 3.4 g/dL (3.4-5.0); Alkaline Phosphatase 142 U/L (46-116); Anion Gap 9.4 mmol/L (3-11); BUN 22 mg/dL (7-18); Bilirubin, Total 0.2 mg/dL (0.2-1.0); CO2 29.6 mmol/L (21.0-32.0); CREATININE 0.9 mg/dL (0.55-1.02); Calcium 9.3 mg/dL (8.5-10.1); Chloride 101 mmol/L (98-107); FREE T4 1.01 ng/dL (0.76-1.46); Glucose 89 mg/dL (74-106); Potassium 3.8 mmol/L (3.5-5.1); Sodium 140 mmol/L (136-145); TSH 15.43 uIU/mL (0.36-3.74); Total Protein 8.7 g/dL (6.4-8.2)
== END 2021-02-21 03:22 | disposition home or self-care (01) ==
LOC: LBO 03:22
PROVIDERS: Visit Provider Internal Medicine
DX: C64.2 Malignant neoplasm of left kidney, except renal pelvis (principal); Z79.899 Other long term (current) drug therapy
CPT/HCPCS: 36415; 80053; 84439; 84443; 85025

== ENCOUNTER 2021-02-24 02:30 | Outpatient (CLI) | payer BC, SELFPAY ==
[2021-02-24 12:15] LABS: Abs Immature Grans 0.02 10^3/uL (0.0-0.06); Absolute Basophil Count 0.14 10^3/uL (0.0-0.2); Absolute Eosinophil Count 0.45 10^3/uL (0.0-0.7); Absolute Lymphocyte Count 3.17 10^3/uL (1.2-3.4); Absolute Monocyte Count 0.34 10^3/uL (0.1-0.8); Absolute Neutrophil Count 4.55 10^3/uL (1.2-6.7); Basophils % 1.6; Eosinophils % 5.2; HCT 44.9 % (36.0-46.0); HGB 14.7 g/dL (11.2-15.7); Immature Grans % 0.2; Lymphocytes % 36.6; MCH 27.4 pg (27.0-33.0); MCHC 32.7 % (32.0-36.0); MCV 83.6 fL (80-95); MPV 9.8 fL (8.0-11.0); Monocytes % 3.9; Neutrophils % 52.5; Nucleated RBC 0 %; Platelet Count 321 10^3/uL (130-400); RBC 5.37 10^6/uL (3.93-5.22); RDW-SD 47.1 fL; WBC 8.67 10^3/uL (4.4-10.8)
[2021-02-24 12:37] LABS: ALT 74 U/L (14-59); AST 45 U/L (15-37); Albumin 3.6 g/dL (3.4-5.0); Alkaline Phosphatase 145 U/L (46-116); Anion Gap 7.4 mmol/L (3-11); BUN 19 mg/dL (7-18); Bilirubin, Total 0.2 mg/dL (0.2-1.0); CO2 29.6 mmol/L (21.0-32.0); CREATININE 0.8 mg/dL (0.55-1.02); Calcium 9.1 mg/dL (8.5-10.1); Chloride 103 mmol/L (98-107); FREE T4 0.97 ng/dL (0.76-1.46); Glucose 92 mg/dL (74-106); Potassium 3.8 mmol/L (3.5-5.1); Sodium 140 mmol/L (136-145); TSH 10.04 uIU/mL (0.36-3.74); Total Protein 8.5 g/dL (6.4-8.2)
== END 2021-02-24 02:31 | disposition home or self-care (01) ==
LOC: LBO 02:30
PROVIDERS: Visit Provider Internal Medicine
DX: C64.2 Malignant neoplasm of left kidney, except renal pelvis (principal); Z79.899 Other long term (current) drug therapy
CPT/HCPCS: 36415; 80053; 84439; 84443; 85025

== ENCOUNTER 2021-03-14 01:56 | Outpatient (CLI) | payer BC, SELFPAY ==
[2021-03-14 11:59] LABS: ALT 82 U/L (14-59); AST 46 U/L (15-37); Albumin 3.5 g/dL (3.4-5.0); Alkaline Phosphatase 151 U/L (46-116); Anion Gap 8.1 mmol/L (3-11); BUN 21 mg/dL (7-18); Bilirubin, Total 0.4 mg/dL (0.2-1.0); CO2 29.9 mmol/L (21.0-32.0); CREATININE 0.9 mg/dL (0.55-1.02); Calcium 9.3 mg/dL (8.5-10.1); Chloride 102 mmol/L (98-107); Glucose 111 mg/dL (74-106); Potassium 3.9 mmol/L (3.5-5.1); Sodium 140 mmol/L (136-145); Total Protein 8.3 g/dL (6.4-8.2)
== END 2021-03-14 01:57 | disposition home or self-care (01) ==
LOC: LBO 01:56
PROVIDERS: Visit Provider Internal Medicine
DX: C64.2 Malignant neoplasm of left kidney, except renal pelvis (principal); Z79.899 Other long term (current) drug therapy
CPT/HCPCS: 36415; 80053

== ENCOUNTER 2021-03-27 04:07 | Outpatient (CLI) | payer BC, SELFPAY ==
[2021-03-27 13:31] LABS: Abs Immature Grans 0.01 10^3/uL (0.0-0.06); Absolute Basophil Count 0.09 10^3/uL (0.0-0.2); Absolute Eosinophil Count 0.63 10^3/uL (0.0-0.7); Absolute Lymphocyte Count 3.04 10^3/uL (1.2-3.4); Absolute Neutrophil Count 3.02 10^3/uL (1.2-6.7); Basophils % 1.3; Eosinophils % 8.9; HCT 47.7 % (36.0-46.0); HGB 16.1 g/dL (11.2-15.7); Immature Grans % 0.1; Lymphocytes % 42.9; MCH 28.2 pg (27.0-33.0); MCHC 33.8 % (32.0-36.0); MCV 83.7 fL (80-95); MPV 10.5 fL (8.0-11.0); Monocytes % 4.2; Neutrophils % 42.6; Nucleated RBC 0 %; Platelet Count 167 10^3/uL (130-400); RDW 19.1 % (11.7-14.6); RDW-SD 55.5 fL; WBC 7.09 10^3/uL (4.4-10.8)
[2021-03-27 13:52] LABS: ALT 74 U/L (14-59); AST 53 U/L (15-37); Albumin 3.7 g/dL (3.4-5.0); Alkaline Phosphatase 112 U/L (46-116); Anion Gap 9.2 mmol/L (3-11); BUN 20 mg/dL (7-18); Bilirubin, Total 0.6 mg/dL (0.2-1.0); CO2 27.8 mmol/L (21.0-32.0); CREATININE 0.9 mg/dL (0.55-1.02); Chloride 103 mmol/L (98-107); FREE T4 0.93 ng/dL (0.76-1.46); Glucose 107 mg/dL (74-106); Potassium 3.6 mmol/L (3.5-5.1); Sodium 140 mmol/L (136-145); TSH 42.76 uIU/mL (0.36-3.74)
== END 2021-03-27 04:08 | disposition home or self-care (01) ==
LOC: LBO 04:07
PROVIDERS: Visit Provider Internal Medicine
DX: C64.2 Malignant neoplasm of left kidney, except renal pelvis (principal); Z79.899 Other long term (current) drug therapy
CPT/HCPCS: 36415; 80053; 84439; 84443; 85025

== ENCOUNTER 2021-04-10 10:30 | Outpatient (CLI) | payer MEDICAID, SELFPAY ==
[2021-04-10 14:20] LABS: Abs Immature Grans 0.01 10^3/uL (0.0-0.06); Absolute Basophil Count 0.05 10^3/uL (0.0-0.2); Absolute Eosinophil Count 0.53 10^3/uL (0.0-0.7); Absolute Lymphocyte Count 2.56 10^3/uL (1.2-3.4); Absolute Monocyte Count 0.39 10^3/uL (0.1-0.8); Absolute Neutrophil Count 2.64 10^3/uL (1.2-6.7); Basophils % 0.8; Eosinophils % 8.6; HCT 41.3 % (36.0-46.0); HGB 13.7 g/dL (11.2-15.7); Immature Grans % 0.2; Lymphocytes % 41.4; MCH 29.9 pg (27.0-33.0); MCHC 33.2 % (32.0-36.0); MCV 90.2 fL (80-95); MPV 10.7 fL (8.0-11.0); Monocytes % 6.3; Neutrophils % 42.7; Nucleated RBC 0 %; Platelet Count 162 10^3/uL (130-400); RBC 4.58 10^6/uL (3.93-5.22); RDW 18.8 % (11.7-14.6); RDW-SD 60.8 fL; WBC 6.18 10^3/uL (4.4-10.8)
[2021-04-10 14:40] LABS: ALT 48 U/L (14-59); AST 29 U/L (15-37); Albumin 3.5 g/dL (3.4-5.0); Alkaline Phosphatase 87 U/L (46-116); Anion Gap 9.7 mmol/L (3-11); BUN 15 mg/dL (7-18); Bilirubin, Total 1.1 mg/dL (0.2-1.0); CO2 28.3 mmol/L (21.0-32.0); CREATININE 0.8 mg/dL (0.55-1.02); Calcium 8.6 mg/dL (8.5-10.1); Chloride 106 mmol/L (98-107); FREE T4 1.16 ng/dL (0.76-1.46); Glucose 140 mg/dL (74-106); Potassium 3.2 mmol/L (3.5-5.1); Sodium 144 mmol/L (136-145); TSH 12.44 uIU/mL (0.36-3.74); Total Protein 7.3 g/dL (6.4-8.2)
== END 2021-04-10 10:31 | disposition home or self-care (01) ==
LOC: LBO 10:31
PROVIDERS: Visit Provider Internal Medicine
DX: C64.2 Malignant neoplasm of left kidney, except renal pelvis (principal); Z79.899 Other long term (current) drug therapy
CPT/HCPCS: 36415; 80053; 84439; 84443; 85025

== ENCOUNTER 2021-05-08 03:56 | Outpatient (CLI) | payer MEDICAID, SELFPAY ==
[2021-05-08 11:22] LABS: Abs Immature Grans 0.02 10^3/uL (0.0-0.06); Absolute Basophil Count 0.13 10^3/uL (0.0-0.2); Absolute Eosinophil Count 0.47 10^3/uL (0.0-0.7); Absolute Monocyte Count 0.44 10^3/uL (0.1-0.8); Absolute Neutrophil Count 4.73 10^3/uL (1.2-6.7); Basophils % 1.5; Eosinophils % 5.5; HCT 43.3 % (36.0-46.0); HGB 14.5 g/dL (11.2-15.7); Immature Grans % 0.2; Lymphocytes % 31.8; MCH 31.9 pg (27.0-33.0); MCHC 33.5 % (32.0-36.0); MCV 95.2 fL (80-95); MPV 10.4 fL (8.0-11.0); Monocytes % 5.2; Neutrophils % 55.8; Nucleated RBC 0 %; Platelet Count 273 10^3/uL (130-400); RBC 4.55 10^6/uL (3.93-5.22); RDW 16.8 % (11.7-14.6); RDW-SD 58.8 fL; WBC 8.49 10^3/uL (4.4-10.8)
[2021-05-08 11:46] LABS: ALT 102 U/L (14-59); AST 82 U/L (15-37); Albumin 3.9 g/dL (3.4-5.0); Alkaline Phosphatase 98 U/L (46-116); Anion Gap 6.9 mmol/L (3-11); BUN 23 mg/dL (7-18); Bilirubin, Total 0.3 mg/dL (0.2-1.0); CO2 29.1 mmol/L (21.0-32.0); CREATININE 0.8 mg/dL (0.55-1.02); Calcium 8.9 mg/dL (8.5-10.1); Chloride 104 mmol/L (98-107); FREE T4 1.11 ng/dL (0.76-1.46); Glucose 96 mg/dL (74-106); Potassium 4.3 mmol/L (3.5-5.1); Sodium 140 mmol/L (136-145); TSH 5.01 uIU/mL (0.36-3.74)
== END 2021-05-08 03:57 | disposition home or self-care (01) ==
PROVIDERS: Visit Provider Internal Medicine
DX: C64.2 Malignant neoplasm of left kidney, except renal pelvis (principal); Z79.899 Other long term (current) drug therapy
CPT/HCPCS: 36415; 80053; 84439; 84443; 85025

== ENCOUNTER 2021-05-12 02:43 | Outpatient (CLI) | payer MEDICAID, SELFPAY ==
[2021-05-12 09:12] LABS: Abs Immature Grans 0.02 10^3/uL (0.0-0.06); Absolute Basophil Count 0.13 10^3/uL (0.0-0.2); Absolute Eosinophil Count 0.51 10^3/uL (0.0-0.7); Absolute Lymphocyte Count 2.18 10^3/uL (1.2-3.4); Absolute Monocyte Count 0.46 10^3/uL (0.1-0.8); Absolute Neutrophil Count 4.22 10^3/uL (1.2-6.7); Basophils % 1.7; Eosinophils % 6.8; HCT 43.3 % (36.0-46.0); HGB 14.4 g/dL (11.2-15.7); Immature Grans % 0.3; MCH 31.4 pg (27.0-33.0); MCHC 33.3 % (32.0-36.0); MCV 94.3 fL (80-95); MPV 10.6 fL (8.0-11.0); Monocytes % 6.1; Neutrophils % 56.1; Nucleated RBC 0 %; Platelet Count 223 10^3/uL (130-400); RBC 4.59 10^6/uL (3.93-5.22); RDW 16.2 % (11.7-14.6); RDW-SD 55.8 fL; WBC 7.52 10^3/uL (4.4-10.8)
[2021-05-12 09:34] LABS: ALT 91 U/L (14-59); AST 51 U/L (15-37); Albumin 3.7 g/dL (3.4-5.0); Alkaline Phosphatase 103 U/L (46-116); Anion Gap 7.2 mmol/L (3-11); BUN 19 mg/dL (7-18); Bilirubin, Total 0.3 mg/dL (0.2-1.0); CO2 25.8 mmol/L (21.0-32.0); CREATININE 0.8 mg/dL (0.55-1.02); Chloride 107 mmol/L (98-107); FREE T4 1.05 ng/dL (0.76-1.46); Glucose 98 mg/dL (74-106); Sodium 140 mmol/L (136-145); TSH 4.18 uIU/mL (0.36-3.74); Total Protein 7.6 g/dL (6.4-8.2)
== END 2021-05-12 02:44 | disposition home or self-care (01) ==
LOC: LBO 02:43
PROVIDERS: Visit Provider Internal Medicine
DX: C64.2 Malignant neoplasm of left kidney, except renal pelvis (principal); Z79.899 Other long term (current) drug therapy
CPT/HCPCS: 36415; 80053; 84439; 84443; 85025

== ENCOUNTER 2021-05-17 01:10 | Outpatient (CLI) | payer MEDICAID, SELFPAY ==
--- NOTE | 2021-05-17 | DI.CT_ITS ---
Exam(s) CT CHEST/ABD/PEL W EXAM: CT CHEST/ABD/PEL W CLINICAL HISTORY: LT RENAL CELL CA METASTATIC,RESTAGING,C64.2. TECHNIQUE: Imaging Protocol: Axial computed tomography images with coronal and sagittal reformatted images were created and reviewed CONTRAST MATERIAL: Intravenous: Omnipaque 350 Contrast volume:100 ml Oral: None COMPARISON: CT CT CHEST/ABD/PEL W from 01/03/2021 FINDINGS: CHEST: LUNGS: There are no pulmonary infiltrates nor pleural effusions. No metastatic nodules in either lung field. There are no significant focal findings in the trachea and mainstem bronchi.. MEDIASTINUM: There is no hilar nor anterior mediastinal adenopathy. However, there is significant pos terior mediastinal and retrocrural lymphadenopathy. There is a 1.9 1.2 cm pathologic appearing lymph node to the right of the esophagus and aorta behind the heart which is unchanged. Also at this level is a left-sided lymph node behind the aorta which has decreased in size, presently measuring 1.6 by 1 .6 cm. Slightly lower down on the opposite-right side the right para-aortic lymph node previously ahsan cribed remains unchanged in size.. CARDIAC: Heart size is normal. There is no pericardial effusion.Caliber of the thoracic aorta is wit hin normal limits. OSSEOUS: No significant osseous lesions.. ABDOMEN: There is no ascites. LIVER: There are no focal hepatic lesions nor dilatation of intrahepatic ducts. GALLBLADDER/BILIARY: The gallbladder is again noted be surgically absent. CBD is not dilated. PANCREAS: No evidence of pancreatic mass nor dilatation of the pancreatic duct. SPLEEN: Spleen is not enlarged. There are no intrasplenic lesions. Splenic and portal veins are jones nt. ADRENALS: Right adrenal gland appears unremarkable. Slight thickening of medial limb of the left adre nal gland is noted. Lateral limb appears unremarkable. KIDNEYS: The previously described large malignant appearing left renal mass is again noted. It has fu rther decreased in size. On today's study the measurements of this mass are 6.8 cm maximum width by 5 .6 cm maximum AP measurement by approximately 8 cm craniocaudal measurement. In addition, the previou sly described intraluminal tumor thrombus in the left renal vein and IVC has decreased in size. Prese ntly this is at the junction of the left renal vein and IVC and exhibits with measurement 1.5 cm by 0 .8 cm AP by 2.8 cm craniocaudal. The tumor thrombus cephalad extent in the IVC has not progressed. Right kidney remains unremarkable with the exception of a tiny nonocclusive calculus again noted. ABDOMINAL AORTA: Abdominal aorta is not enlarged. LYMPH NODES: Posterior intrathoracic nodes as above. Below the level of the diaphragm there is no new para-aortic adenopathy. No new mesenteric masses nor omental cake. ABDOMINAL WALL: No evidence of significant anterior abdominal wall hernia. GI: There is no evidence of bowel obstruction. PELVIS: LYMPH NODES: There is no intrapelvic nor inguinal adenopathy. GI: No evidence of appendicitis.Sigmoid diverticulosis noted. No acute diverticulitis evident. URINARY BLADDER: No calculi nor masses evident REPRODUCTIVE: Uterus and adnexal regions appear unremarkable. No ovarian masses. No free fluid in the dependent aspect of the pelvis. OSSEOUS: Left hip prosthesis is again noted. No new lytic osseous lesions evident. IMPRESSION: 1. Compared to the prior study listed above the size of the large malignant left renal mass has furth er decreased with present measurements as described above. In addition, the size of the intraluminal thrombus in the left renal vein and IVC is slightly decreased. No new nor increasing adenopathy below the hemidiaphragms. However, in the retrocrural-paraesophageal region of the chest there still patho logic adenopathy adjacent to the esophagus and aorta as described above. One of these pathologic appe aring lymph nodes which is behind the left side of the has slightly decreased in size. Lymph nodes to the right of the aorta have not decreased in size. 2. There is no ascites nor new omental cake. 3. No metastatic appearing lung nodules. Lungs are clear. No pleural effusions 4. There are no lytic osseous lesions noted. RADIATION DOSE DELIVERED: 926.52mGy.cm Total DLP DATA REPOSITORY: All CT scans at this facility are submitted to the National Radiology Data Registry (NRDR) Dose Index Registry (DIR) with the [employer] (ACR). RADIATION OPTIMIZATION: All CT scans at this facility use at least one of these dose optimization te chniques: automated exposure control; mA and/or kV adjustment per patient size (includes targeted exa ms where dose is matched to clinical indication); or iterative reconstruction.
[2021-05-17] MEDS: Omnipaque 350 MG/ML 100 ML BTL IV (10:08)
[2021-05-17] MEDS: Normal Saline - Diluent 50 ML VIAL IV (10:09)
[2021-05-17] MEDS: Breeza Beverage 473 ML BTL PO ×2 (10:11→10:12)
[2021-05-17] MEDS: Omnipaque 350 MG/ML 50 ML BTL PO (10:14)
== END 2021-05-17 01:30 ==
PROVIDERS: Visit Provider Internal Medicine
DX: C64.2 Malignant neoplasm of left kidney, except renal pelvis (principal)
CPT/HCPCS: 74177; 71260; J3490; Q9967

== ENCOUNTER 2021-06-20 01:53 | Outpatient (CLI) | payer MEDICAID, SELFPAY ==
[2021-06-20 09:20] LABS: Abs Immature Grans 0.01 10^3/uL (0.0-0.06); Absolute Basophil Count 0.08 10^3/uL (0.0-0.2); Absolute Eosinophil Count 0.37 10^3/uL (0.0-0.7); Absolute Lymphocyte Count 1.69 10^3/uL (1.2-3.4); Absolute Monocyte Count 0.27 10^3/uL (0.1-0.8); Basophils % 1.2; Eosinophils % 5.8; HGB 15.1 g/dL (11.2-15.7); Immature Grans % 0.2; Lymphocytes % 26.3; MCH 32.3 pg (27.0-33.0); MCHC 34.3 % (32.0-36.0); MCV 94.2 fL (80-95); MPV 10.6 fL (8.0-11.0); Monocytes % 4.2; Neutrophils % 62.3; Nucleated RBC 0 %; Platelet Count 195 10^3/uL (130-400); RBC 4.67 10^6/uL (3.93-5.22); RDW 13.9 % (11.7-14.6); RDW-SD 47.2 fL; WBC 6.42 10^3/uL (4.4-10.8)
[2021-06-20 11:50] LABS: ALT 64 U/L (14-59); AST 41 U/L (15-37); Albumin 3.9 g/dL (3.4-5.0); Alkaline Phosphatase 83 U/L (46-116); Anion Gap 7.4 mmol/L (3-11); BUN 17 mg/dL (7-18); Bilirubin, Total 0.6 mg/dL (0.2-1.0); CO2 32.6 mmol/L (21.0-32.0); CREATININE 0.8 mg/dL (0.55-1.02); Calcium 9.1 mg/dL (8.5-10.1); Chloride 105 mmol/L (98-107); FREE T4 1.11 ng/dL (0.76-1.46); Glucose 93 mg/dL (74-106); Sodium 145 mmol/L (136-145); TSH 4.08 uIU/mL (0.36-3.74); Total Protein 7.3 g/dL (6.4-8.2)
== END 2021-06-20 01:54 | disposition home or self-care (01) ==
LOC: LBO 01:53
PROVIDERS: Visit Provider Internal Medicine
DX: C64.2 Malignant neoplasm of left kidney, except renal pelvis (principal); Z79.899 Other long term (current) drug therapy
CPT/HCPCS: 36415; 80053; 84439; 84443; 85025

== ENCOUNTER 2021-07-18 02:35 | Outpatient (CLI) | payer MEDICAID, SELFPAY ==
[2021-07-18 13:21] LABS: Abs Immature Grans 0.01 10^3/uL (0.0-0.06); Absolute Basophil Count 0.09 10^3/uL (0.0-0.2); Absolute Eosinophil Count 0.61 10^3/uL (0.0-0.7); Absolute Monocyte Count 0.34 10^3/uL (0.1-0.8); Absolute Neutrophil Count 3.64 10^3/uL (1.2-6.7); Basophils % 1.1; Eosinophils % 7.5; HCT 46.4 % (36.0-46.0); HGB 15.7 g/dL (11.2-15.7); Immature Grans % 0.1; MCHC 33.8 % (32.0-36.0); MCV 97.5 fL (80-95); MPV 10.8 fL (8.0-11.0); Monocytes % 4.2; Neutrophils % 45.1; Nucleated RBC 0 %; Platelet Count 217 10^3/uL (130-400); RBC 4.76 10^6/uL (3.93-5.22); RDW 13.5 % (11.7-14.6); WBC 8.09 10^3/uL (4.4-10.8)
[2021-07-18 13:56] LABS: ALT 60 U/L (14-59); AST 38 U/L (15-37); Albumin 3.6 g/dL (3.4-5.0); Alkaline Phosphatase 77 U/L (46-116); BUN 21 mg/dL (7-18); Bilirubin, Total 0.4 mg/dL (0.2-1.0); CREATININE 0.9 mg/dL (0.55-1.02); Calcium 9.1 mg/dL (8.5-10.1); Chloride 105 mmol/L (98-107); Glucose 94 mg/dL (74-106); Potassium 3.7 mmol/L (3.5-5.1); Sodium 142 mmol/L (136-145); TSH 13.27 uIU/mL (0.36-3.74); Total Protein 7.2 g/dL (6.4-8.2)
== END 2021-07-18 02:36 | disposition home or self-care (01) ==
LOC: LBO 02:35
PROVIDERS: Visit Provider Internal Medicine
DX: C64.2 Malignant neoplasm of left kidney, except renal pelvis (principal); Z79.899 Other long term (current) drug therapy
CPT/HCPCS: 36415; 80053; 84439; 84443; 85025

== ENCOUNTER 2021-07-24 00:32 | Outpatient (CLI) | payer MEDICAID, SELFPAY ==
--- NOTE | 2021-07-24 08:54 | DI.MAMMO_ITS ---
Exam(s) MAMMO SCREENING EXAM: MAMMO SCREENING CLINICAL HISTORY: screening,Z12.39. TECHNIQUE: Bilateral full field digital CC and MLO mammographic images were obtained with 3D tomosyn thesis and utilizing computer aided detection (CAD). COMPARISON: Prior mammograms dating back to 2012, the most recent being June 2020. FINDINGS: There are no CAD designations. There are no new spiculated masses nor malignant appearing microcalcification groups. There is no significant architectural distortion nor skin thickening-retraction. IMPRESSION: No radiographic evidence of malignancy. BI-RADS Category 1 - Negative Breast Density - Category B - Scattered areas of fibroglandular density Breast density Category C or D implies that the patient has dense breast tissue. Dense breast tissue can make it harder to find cancer on a mammogram. Dense breast tissue is also associated with an incr eased risk of breast cancer. This information about the result of the mammogram report was provided to the patient to raise their awareness. Use this report when you speak with the patient about their risks for breast cancer, which includes their family history. At that time, you may recommend additional screening tests (Ultrasoun d or MRI) as these tests may add significant information. A negative radiographic report should not delay biopsy if a dominant or clinically suspicious mass is present. Up to ten percent of cancers are not identified on mammography. A negative report may reinforce clinical impression. Adenosis and dense breasts may obscure an underlying neoplasm. False positive reports average 6 to 10%. Patient will receive a letter notifying them of these results.
== END 2021-07-24 00:52 ==
DX: Z12.31 Encounter for screening mammogram for malignant neoplasm of breast (principal)
CPT/HCPCS: 77063; 77067

== ENCOUNTER 2021-08-14 11:09 | Outpatient (CLI) | payer MEDICAID, SELFPAY ==
[2021-08-14 13:50] LABS: Abs Immature Grans 0.01 10^3/uL (0.0-0.06); Absolute Basophil Count 0.12 10^3/uL (0.0-0.2); Absolute Eosinophil Count 0.52 10^3/uL (0.0-0.7); Absolute Lymphocyte Count 3.19 10^3/uL (1.2-3.4); Basophils % 1.5; Eosinophils % 6.4; HCT 43.4 % (36.0-46.0); HGB 14.7 g/dL (11.2-15.7); Immature Grans % 0.1; Lymphocytes % 39.2; MCH 33.5 pg (27.0-33.0); MCHC 33.9 % (32.0-36.0); MCV 98.9 fL (80-95); MPV 10.5 fL (8.0-11.0); Monocytes % 4.9; Neutrophils % 47.9; Nucleated RBC 0 %; Platelet Count 210 10^3/uL (130-400); RBC 4.39 10^6/uL (3.93-5.22); RDW 14.2 % (11.7-14.6); RDW-SD 51.7 fL; WBC 8.14 10^3/uL (4.4-10.8)
[2021-08-14 14:16] LABS: ALT 59 U/L (14-59); AST 35 U/L (15-37); Albumin 3.6 g/dL (3.4-5.0); Alkaline Phosphatase 69 U/L (46-116); Anion Gap 6.1 mmol/L (3-11); BUN 25 mg/dL (7-18); Bilirubin, Total 0.4 mg/dL (0.2-1.0); CO2 32.9 mmol/L (21.0-32.0); CREATININE 0.9 mg/dL (0.55-1.02); Calcium 8.6 mg/dL (8.5-10.1); Chloride 105 mmol/L (98-107); FREE T4 1.19 ng/dL (0.76-1.46); Glucose 98 mg/dL (74-106); Potassium 3.6 mmol/L (3.5-5.1); Sodium 144 mmol/L (136-145); TSH 7.26 uIU/mL (0.36-3.74); Total Protein 7.1 g/dL (6.4-8.2)
== END 2021-08-14 11:10 | disposition home or self-care (01) ==
PROVIDERS: Visit Provider Internal Medicine
DX: C64.2 Malignant neoplasm of left kidney, except renal pelvis (principal); Z79.899 Other long term (current) drug therapy
CPT/HCPCS: 36415; 80053; 84439; 84443; 85025

== ENCOUNTER 2021-10-31 02:00 | Outpatient (CLI) | payer MEDICAID, SELFPAY ==
[2021-10-31 13:16] LABS: Abs Immature Grans 0.03 10^3/uL (0.0-0.06); Absolute Basophil Count 0.11 10^3/uL (0.0-0.2); Absolute Eosinophil Count 0.43 10^3/uL (0.0-0.7); Absolute Lymphocyte Count 3.21 10^3/uL (1.2-3.4); Absolute Monocyte Count 0.42 10^3/uL (0.1-0.8); Absolute Neutrophil Count 5.51 10^3/uL (1.2-6.7); Basophils % 1.1; Eosinophils % 4.4; HGB 15.1 g/dL (11.2-15.7); Immature Grans % 0.3; Lymphocytes % 33.1; MCH 33.6 pg (27.0-33.0); MCHC 32.8 % (32.0-36.0); MCV 102.4 fL (80-95); MPV 10.8 fL (8.0-11.0); Monocytes % 4.3; Neutrophils % 56.8; Nucleated RBC 0 %; Platelet Count 275 10^3/uL (130-400); RBC 4.49 10^6/uL (3.93-5.22); RDW 12.7 % (11.7-14.6); RDW-SD 48.1 fL; WBC 9.71 10^3/uL (4.4-10.8)
[2021-10-31 13:40] LABS: ALT 46 U/L (14-59); AST 32 U/L (15-37); Albumin 3.4 g/dL (3.4-5.0); Alkaline Phosphatase 81 U/L (46-116); Anion Gap 8.6 mmol/L (3-11); BUN 13 mg/dL (7-18); Bilirubin, Total 0.3 mg/dL (0.2-1.0); CO2 30.4 mmol/L (21.0-32.0); CREATININE 0.8 mg/dL (0.55-1.02); Calcium 8.8 mg/dL (8.5-10.1); Chloride 102 mmol/L (98-107); FREE T4 1.22 ng/dL (0.76-1.46); Glucose 100 mg/dL (74-106); Potassium 3.2 mmol/L (3.5-5.1); Sodium 141 mmol/L (136-145); TSH 6.88 uIU/mL (0.36-3.74); Total Protein 7.3 g/dL (6.4-8.2)
== END 2021-10-31 02:01 | disposition home or self-care (01) ==
LOC: LBO 02:01
PROVIDERS: Visit Provider Nurse Practitioner Adult Health
DX: C64.2 Malignant neoplasm of left kidney, except renal pelvis (principal); E03.9 Hypothyroidism, unspecified
CPT/HCPCS: 36415; 80053; 84439; 84443; 85025

== ENCOUNTER 2021-11-28 03:29 | Outpatient (CLI) | payer MEDICAID, SELFPAY ==
[2021-11-28 13:17] LABS: Abs Immature Grans 0.03 10^3/uL (0.0-0.06); Absolute Basophil Count 0.09 10^3/uL (0.0-0.2); Absolute Eosinophil Count 0.38 10^3/uL (0.0-0.7); Absolute Lymphocyte Count 3.35 10^3/uL (1.2-3.4); Absolute Neutrophil Count 5.04 10^3/uL (1.2-6.7); Eosinophils % 4.1; HGB 15.5 g/dL (11.2-15.7); Immature Grans % 0.3; Lymphocytes % 36.1; MCH 33.3 pg (27.0-33.0); MCV 101.1 fL (80-95); MPV 10.6 fL (8.0-11.0); Monocytes % 4.3; Neutrophils % 54.2; Nucleated RBC 0 %; Platelet Count 273 10^3/uL (130-400); RBC 4.65 10^6/uL (3.93-5.22); RDW 13.3 % (11.7-14.6); RDW-SD 50.2 fL; WBC 9.29 10^3/uL (4.4-10.8)
[2021-11-28 13:58] LABS: ALT 37 U/L (14-59); AST 26 U/L (15-37); Albumin 3.4 g/dL (3.4-5.0); Alkaline Phosphatase 71 U/L (46-116); Anion Gap 8.8 mmol/L (3-11); BUN 15 mg/dL (7-18); Bilirubin, Total 0.3 mg/dL (0.2-1.0); CO2 29.2 mmol/L (21.0-32.0); CREATININE 0.8 mg/dL (0.55-1.02); Calcium 8.8 mg/dL (8.5-10.1); Chloride 103 mmol/L (98-107); FREE T4 1.38 ng/dL (0.76-1.46); Glucose 100 mg/dL (74-106); Potassium 3.3 mmol/L (3.5-5.1); Sodium 141 mmol/L (136-145); Total Protein 7.1 g/dL (6.4-8.2)
== END 2021-11-28 03:30 | disposition home or self-care (01) ==
LOC: LBO 03:29
PROVIDERS: Visit Provider Internal Medicine
DX: C64.2 Malignant neoplasm of left kidney, except renal pelvis (principal)
CPT/HCPCS: 36415; 80053; 84439; 84443; 85025

== ENCOUNTER 2021-12-26 02:53 | Outpatient (CLI) | payer MEDICAID, SELFPAY ==
[2021-12-26 10:46] LABS: Abs Immature Grans 0.02 10^3/uL (0.0-0.06); Absolute Basophil Count 0.09 10^3/uL (0.0-0.2); Absolute Eosinophil Count 0.38 10^3/uL (0.0-0.7); Absolute Lymphocyte Count 2.74 10^3/uL (1.2-3.4); Absolute Monocyte Count 0.37 10^3/uL (0.1-0.8); Absolute Neutrophil Count 5.15 10^3/uL (1.2-6.7); Eosinophils % 4.3; HCT 45.5 % (36.0-46.0); HGB 15.3 g/dL (11.2-15.7); Immature Grans % 0.2; Lymphocytes % 31.3; MCH 33.7 pg (27.0-33.0); MCHC 33.6 % (32.0-36.0); MCV 100.2 fL (80-95); MPV 10.8 fL (8.0-11.0); Monocytes % 4.2; Nucleated RBC 0 %; Platelet Count 226 10^3/uL (130-400); RBC 4.54 10^6/uL (3.93-5.22); RDW 13.2 % (11.7-14.6); RDW-SD 48.9 fL; WBC 8.75 10^3/uL (4.4-10.8)
[2021-12-26 11:08] LABS: ALT 52 U/L (14-59); AST 31 U/L (15-37); Albumin 3.3 g/dL (3.4-5.0); Alkaline Phosphatase 66 U/L (46-116); Anion Gap 6.3 mmol/L (3-11); BUN 20 mg/dL (7-18); Bilirubin, Total 0.3 mg/dL (0.2-1.0); CO2 29.7 mmol/L (21.0-32.0); CREATININE 0.8 mg/dL (0.55-1.02); Calcium 8.7 mg/dL (8.5-10.1); Chloride 104 mmol/L (98-107); FREE T4 1.36 ng/dL (0.76-1.46); Glucose 103 mg/dL (74-106); Potassium 3.2 mmol/L (3.5-5.1); Sodium 140 mmol/L (136-145); TSH 1.88 uIU/mL (0.36-3.74); Total Protein 6.9 g/dL (6.4-8.2)
== END 2021-12-26 02:54 | disposition home or self-care (01) ==
PROVIDERS: Visit Provider Nurse Practitioner Adult Health
DX: C64.2 Malignant neoplasm of left kidney, except renal pelvis (principal); R94.6 Abnormal results of thyroid function studies
CPT/HCPCS: 36415; 80053; 84439; 84443; 85025

== ENCOUNTER 2022-01-23 06:03 | Outpatient (CLI) | payer MEDICAID, SELFPAY ==
[2022-01-23 08:51] LABS: Abs Immature Grans 0.02 10^3/uL (0.0-0.06); Absolute Basophil Count 0.09 10^3/uL (0.0-0.2); Absolute Eosinophil Count 0.55 10^3/uL (0.0-0.7); Absolute Monocyte Count 0.37 10^3/uL (0.1-0.8); Absolute Neutrophil Count 4.79 10^3/uL (1.2-6.7); Basophils % 1.2; Eosinophils % 7.1; HCT 47.2 % (36.0-46.0); HGB 15.4 g/dL (11.2-15.7); Immature Grans % 0.3; Lymphocytes % 24.6; MCH 33.1 pg (27.0-33.0); MCHC 32.6 % (32.0-36.0); MCV 101.5 fL (80-95); MPV 10.7 fL (8.0-11.0); Monocytes % 4.8; Platelet Count 245 10^3/uL (130-400); RBC 4.65 10^6/uL (3.93-5.22); RDW 13.3 % (11.7-14.6); RDW-SD 50.9 fL; WBC 7.72 10^3/uL (4.4-10.8)
[2022-01-23 09:12] LABS: ALT 41 U/L (14-59); AST 29 U/L (15-37); Albumin 3.4 g/dL (3.4-5.0); Alkaline Phosphatase 76 U/L (46-116); BUN 16 mg/dL (7-18); Bilirubin, Total 0.4 mg/dL (0.2-1.0); CREATININE 0.9 mg/dL (0.55-1.02); Calcium 8.7 mg/dL (8.5-10.1); Chloride 104 mmol/L (98-107); Glucose 104 mg/dL (74-106); Potassium 3.6 mmol/L (3.5-5.1); Sodium 140 mmol/L (136-145); TSH 2.53 uIU/mL (0.36-3.74)
== END 2022-01-23 06:04 | disposition home or self-care (01) ==
LOC: LBO 06:03
PROVIDERS: Nurse Practitioner Adult Health; Visit Provider Internal Medicine
DX: C64.2 Malignant neoplasm of left kidney, except renal pelvis (principal); E03.9 Hypothyroidism, unspecified
CPT/HCPCS: 36415; 80053; 84439; 84443; 85025

== ENCOUNTER 2022-02-20 02:48 | Outpatient (CLI) | payer MEDICAID, SELFPAY ==
[2022-02-20 09:07] LABS: Abs Immature Grans 0.01 10^3/uL (0.0-0.06); Absolute Basophil Count 0.11 10^3/uL (0.0-0.2); Absolute Eosinophil Count 0.72 10^3/uL (0.0-0.7); Absolute Lymphocyte Count 2.02 10^3/uL (1.2-3.4); Absolute Monocyte Count 0.37 10^3/uL (0.1-0.8); Absolute Neutrophil Count 4.86 10^3/uL (1.2-6.7); Basophils % 1.4; Eosinophils % 8.9; HCT 49.1 % (36.0-46.0); HGB 16.1 g/dL (11.2-15.7); Immature Grans % 0.1; MCH 33.4 pg (27.0-33.0); MCHC 32.8 % (32.0-36.0); MCV 102 fL (80-95); MPV 10.7 fL (8.0-11.0); Monocytes % 4.6; Platelet Count 258 10^3/uL (130-400); RBC 4.82 10^6/uL (3.93-5.22); RDW 13.2 % (11.7-14.6); RDW-SD 50.4 fL; WBC 8.09 10^3/uL (4.4-10.8)
[2022-02-20 09:26] LABS: ALT 30 U/L (14-59); AST 26 U/L (15-37); Albumin 3.2 g/dL (3.4-5.0); Alkaline Phosphatase 76 U/L (46-116); Anion Gap 5.3 mmol/L (3-11); BUN 14 mg/dL (7-18); Bilirubin, Total 0.4 mg/dL (0.2-1.0); CO2 31.7 mmol/L (21.0-32.0); CREATININE 0.8 mg/dL (0.55-1.02); Calcium 8.7 mg/dL (8.5-10.1); Chloride 106 mmol/L (98-107); FREE T4 1.33 ng/dL (0.76-1.46); Glucose 101 mg/dL (74-106); Potassium 3.5 mmol/L (3.5-5.1); Sodium 143 mmol/L (136-145); TSH 3.44 uIU/mL (0.36-3.74); Total Protein 6.9 g/dL (6.4-8.2)
== END 2022-02-20 02:49 | disposition home or self-care (01) ==
LOC: LBO 02:48
PROVIDERS: Nurse Practitioner Adult Health; Visit Provider Internal Medicine
DX: C64.2 Malignant neoplasm of left kidney, except renal pelvis (principal); E03.9 Hypothyroidism, unspecified; F41.9 Anxiety disorder, unspecified
CPT/HCPCS: 36415; 80053; 84439; 84443; 85025

== ENCOUNTER 2022-03-26 03:46 | Outpatient (CLI) | payer MEDICAID, SELFPAY ==
[2022-03-26 13:35] LABS: Abs Immature Grans 0.01 10^3/uL (0.0-0.06); Absolute Basophil Count 0.12 10^3/uL (0.0-0.2); Absolute Eosinophil Count 0.35 10^3/uL (0.0-0.7); Absolute Lymphocyte Count 1.76 10^3/uL (1.2-3.4); Absolute Monocyte Count 0.39 10^3/uL (0.1-0.8); Absolute Neutrophil Count 5.15 10^3/uL (1.2-6.7); Basophils % 1.5; Eosinophils % 4.5; HCT 43.3 % (36.0-46.0); HGB 14.5 g/dL (11.2-15.7); Immature Grans % 0.1; Lymphocytes % 22.6; MCH 33.3 pg (27.0-33.0); MCHC 33.5 % (32.0-36.0); MCV 99 fL (80-95); MPV 10.4 fL (8.0-11.0); Neutrophils % 66.3; Platelet Count 245 10^3/uL (130-400); RBC 4.36 10^6/uL (3.93-5.22); RDW 12.9 % (11.7-14.6); RDW-SD 47.6 fL; WBC 7.78 10^3/uL (4.4-10.8)
[2022-03-26 14:42] LABS: ALT 29 U/L (14-59); AST 24 U/L (15-37); Albumin 3.1 g/dL (3.4-5.0); Alkaline Phosphatase 69 U/L (46-116); Anion Gap 7.3 mmol/L (3-11); BUN 17 mg/dL (7-18); Bilirubin, Total 0.4 mg/dL (0.2-1.0); CO2 28.7 mmol/L (21.0-32.0); CREATININE 0.7 mg/dL (0.55-1.02); Calcium 8.6 mg/dL (8.5-10.1); Chloride 104 mmol/L (98-107); FREE T4 1.37 ng/dL (0.76-1.46); Glucose 111 mg/dL (74-106); Potassium 3.4 mmol/L (3.5-5.1); Sodium 140 mmol/L (136-145); Total Protein 6.6 g/dL (6.4-8.2)
== END 2022-03-26 03:47 | disposition home or self-care (01) ==
LOC: LBO 03:46
PROVIDERS: Visit Provider Internal Medicine
DX: C64.2 Malignant neoplasm of left kidney, except renal pelvis (principal); E03.9 Hypothyroidism, unspecified
CPT/HCPCS: 36415; 80053; 84439; 84443; 85025

== ENCOUNTER 2022-04-23 04:30 | Outpatient (CLI) | payer MEDICAID, SELFPAY ==
[2022-04-23 12:42] LABS: Abs Immature Grans 0.01 10^3/uL (0.0-0.06); Absolute Basophil Count 0.12 10^3/uL (0.0-0.2); Absolute Eosinophil Count 0.54 10^3/uL (0.0-0.7); Absolute Lymphocyte Count 2.26 10^3/uL (1.2-3.4); Absolute Monocyte Count 0.42 10^3/uL (0.1-0.8); Absolute Neutrophil Count 4.99 10^3/uL (1.2-6.7); Basophils % 1.4; Eosinophils % 6.5; HCT 45.3 % (36.0-46.0); HGB 15.2 g/dL (11.2-15.7); Immature Grans % 0.1; Lymphocytes % 27.1; MCH 33.6 pg (27.0-33.0); MCHC 33.6 % (32.0-36.0); MCV 100 fL (80-95); MPV 11.1 fL (8.0-11.0); Neutrophils % 59.9; Platelet Count 247 10^3/uL (130-400); RBC 4.52 10^6/uL (3.93-5.22); RDW 13.4 % (11.7-14.6); RDW-SD 49.7 fL; WBC 8.34 10^3/uL (4.4-10.8)
[2022-04-23 13:29] LABS: ALT 32 U/L (14-59); AST 24 U/L (15-37); Albumin 3.1 g/dL (3.4-5.0); Alkaline Phosphatase 67 U/L (46-116); Anion Gap 7.7 mmol/L (3-11); BUN 28 mg/dL (7-18); Bilirubin, Total 0.3 mg/dL (0.2-1.0); CO2 28.3 mmol/L (21.0-32.0); CREATININE 0.9 mg/dL (0.55-1.02); Calcium 8.4 mg/dL (8.5-10.1); Chloride 106 mmol/L (98-107); FREE T4 1.25 ng/dL (0.76-1.46); Glucose 109 mg/dL (74-106); Potassium 3.9 mmol/L (3.5-5.1); Sodium 142 mmol/L (136-145); TSH 2.44 uIU/mL (0.36-3.74); Total Protein 6.4 g/dL (6.4-8.2)
== END 2022-04-23 04:31 | disposition home or self-care (01) ==
LOC: LBO 04:30
PROVIDERS: Visit Provider Internal Medicine
DX: C64.2 Malignant neoplasm of left kidney, except renal pelvis (principal)
CPT/HCPCS: 36415; 80053; 84439; 84443; 85025

== ENCOUNTER 2022-04-24 03:52 | Outpatient (CLI) | payer MEDICAID, SELFPAY | END 2022-04-24 03:53 | disposition home or self-care (01) | LOC: LBO 03:52 | PROVIDERS: Visit Provider Internal Medicine ==

== ENCOUNTER → 2022-05-18 | Outpatient (CLI) | payer MEDICAID, SELFPAY ==
--- NOTE | 2022-05-18 10:30 | DI.NM_ITS ---
Exam(s) [place] BONE SCAN WHOLE BODY GRP EXAM: [place] BONE SCAN WHOLE BODY GRP CLINICAL HISTORY: LUNG RENAL CANCER C78.00 C64.4, RESTAGING. TECHNIQUE: Injected Dose: 26.0 mCi Tc-99m MDP Delayed Images: 2-3 hours. Whole body images and lateral views of the head and neck, chest and pelvis. COMPARISON: [facility] BONE SCAN WHOLE BODY GRP from 10/05/2020 CR XR HIP LT AP LAT ONLY from 12/01/[address] CHEST/ABD/PEL W from 05/17/2021 FINDINGS: Symmetric axial uptake. Bilateral renal excretion is identified. No focal area of intense suspicious uptake is seen. Increased activity is again noted in the are right superior acetabulum consistent wit h severe degenerative changes seen on prior CT. IMPRESSION: 1. No evidence of metastatic disease. DATA REPOSITORY:
--- NOTE | 2022-05-18 11:40 | DI.MRI_ITS ---
Exam(s) MR BRAIN WO/W EXAM: MR BRAIN WO/W CLINICAL HISTORY: LUNG RENAL CANCER C78.00 C64.2 RESTAGING. TECHNIQUE: Multiplanar multisequence MRI of the brain was performed. CONTRAST MATERIAL: IV Contrast: 10 ML of Dotarem contrast administered. COMPARISON: MR MR BRAIN WO/W from 10/05/2020 FINDINGS: The exam is somewhat limited by the motion. VENTRICLES AND EXTRA AXIAL SPACES: Normal in size and morphology for the patient's age. HEMORRHAGE: None. CEREBRAL PARENCHYMA: No focus of restricted diffusion to suggest acute infarct. No space-occupying le thomas identified. Stable scattered small high signal foci consistent with microvascular changes. MIDLINE SHIFT: None. BRAINSTEM/CEREBELLUM: Normal. ENHANCEMENT: No suspicious enhancement identified. VISUALIZED PARANASAL SINUSES/MASTOIDS: Small amount of mucous retention at the floor of the left maxi llary sinus. Mild ethmoid and right maxillary sinus mucosal thickening. OTHER FINDINGS: Pituitary and orbits are unremarkable. IMPRESSION: No evidence of metastatic disease or other acute abnormality. DATA REPOSITORY:
== END ==
PROVIDERS: Visit Provider Internal Medicine
DX: C78.00 Secondary malignant neoplasm of unspecified lung (principal); C64.2 Malignant neoplasm of left kidney, except renal pelvis
CPT/HCPCS: 70553; 78306

== ENCOUNTER 2022-05-22 13:29 | Outpatient (CLI) | payer MEDICAID, SELFPAY ==
[2022-05-22 13:10] LABS: Abs Immature Grans 0.01 10^3/uL (0.0-0.06); Absolute Basophil Count 0.15 10^3/uL (0.0-0.2); Absolute Eosinophil Count 0.41 10^3/uL (0.0-0.7); Absolute Lymphocyte Count 2.67 10^3/uL (1.2-3.4); Absolute Monocyte Count 0.53 10^3/uL (0.1-0.8); Absolute Neutrophil Count 3.73 10^3/uL (1.2-6.7); Eosinophils % 5.5; HCT 44.7 % (36.0-46.0); HGB 14.8 g/dL (11.2-15.7); Immature Grans % 0.1; Lymphocytes % 35.6; MCH 32.7 pg (27.0-33.0); MCHC 33.1 % (32.0-36.0); MCV 99 fL (80-95); MPV 10.3 fL (8.0-11.0); Monocytes % 7.1; Neutrophils % 49.7; Platelet Count 279 10^3/uL (130-400); RBC 4.53 10^6/uL (3.93-5.22); RDW 11.9 % (11.7-14.6); RDW-SD 43.3 fL
[2022-05-22 13:54] LABS: ALT 41 U/L (14-59); AST 22 U/L (15-37); Albumin 3.5 g/dL (3.4-5.0); Alkaline Phosphatase 123 U/L (46-116); Anion Gap 7.8 mmol/L (3-11); BUN 18 mg/dL (7-18); Bilirubin, Total 0.3 mg/dL (0.2-1.0); CO2 29.2 mmol/L (21.0-32.0); CREATININE 0.8 mg/dL (0.55-1.02); Chloride 103 mmol/L (98-107); FREE T4 1.29 ng/dL (0.76-1.46); Glucose 117 mg/dL (74-106); Potassium 3.5 mmol/L (3.5-5.1); Sodium 140 mmol/L (136-145); TSH 3.61 uIU/mL (0.36-3.74); Total Protein 7.7 g/dL (6.4-8.2)
== END 2022-05-22 13:30 | disposition home or self-care (01) ==
LOC: LBO 13:30
PROVIDERS: Visit Provider Nurse Practitioner Adult Health
DX: C64.2 Malignant neoplasm of left kidney, except renal pelvis (principal)
CPT/HCPCS: 36415; 80053; 84439; 84443; 85025

== ENCOUNTER 2022-06-25 02:35 | Outpatient (CLI) | payer MEDICAID, SELFPAY ==
[2022-06-25 12:38] LABS: Abs Immature Grans 0.01 10^3/uL (0.0-0.06); Absolute Basophil Count 0.08 10^3/uL (0.0-0.2); Absolute Eosinophil Count 0.32 10^3/uL (0.0-0.7); Absolute Lymphocyte Count 1.43 10^3/uL (1.2-3.4); Absolute Monocyte Count 0.51 10^3/uL (0.1-0.8); Absolute Neutrophil Count 4.63 10^3/uL (1.2-6.7); Basophils % 1.1; Eosinophils % 4.6; HCT 44.1 % (36.0-46.0); HGB 14.5 g/dL (11.2-15.7); Immature Grans % 0.1; Lymphocytes % 20.5; MCH 30.5 pg (27.0-33.0); MCHC 32.9 % (32.0-36.0); MCV 93 fL (80-95); MPV 11.6 fL (8.0-11.0); Monocytes % 7.3; Neutrophils % 66.4; Platelet Count 178 10^3/uL (130-400); RBC 4.75 10^6/uL (3.93-5.22); RDW 12.1 % (11.7-14.6); RDW-SD 41.9 fL; WBC 6.98 10^3/uL (4.4-10.8)
[2022-06-25 13:41] LABS: ALT 41 U/L (14-59); AST 35 U/L (15-37); Albumin 3.5 g/dL (3.4-5.0); Alkaline Phosphatase 135 U/L (46-116); Anion Gap 8.7 mmol/L (3-11); BUN 20 mg/dL (7-18); Bilirubin, Total 0.3 mg/dL (0.2-1.0); CO2 30.3 mmol/L (21.0-32.0); CREATININE 0.8 mg/dL (0.55-1.02); Calcium 9.4 mg/dL (8.5-10.1); Chloride 102 mmol/L (98-107); Estimated GFR 84.82 (mL/min/1.73m2); Glucose 104 mg/dL (74-106); Potassium 3.5 mmol/L (3.5-5.1); Sodium 141 mmol/L (136-145); TSH 5.14 uIU/mL (0.36-3.74); Total Protein 7.8 g/dL (6.4-8.2)
== END 2022-06-25 02:36 | disposition home or self-care (01) ==
LOC: LBO 02:35
PROVIDERS: Visit Provider Nurse Practitioner Adult Health
DX: C64.2 Malignant neoplasm of left kidney, except renal pelvis (principal)
CPT/HCPCS: 36415; 80053; 84439; 84443; 85025

== ENCOUNTER 2022-07-18 14:17 | Outpatient (REF) | payer MEDICAID, SELFPAY ==
[2022-07-18 15:08] LABS: Bilirubin Negative (Negative); Blood Small (Negative); Clarity Clear (Clear); Glucose Negative (Negative); Ketones Negative (Negative); Leukocyte Esterase Negative (Negative); Nitrite Negative (Negative); Specific Gravity 1.025 (1.005-1.025); Urobilinogen 0.2 EU/dL (Up TO 0.2); pH 6.5 (5-8)
[2022-07-18 15:40] LABS: Bacteria Negative HPF (Negative); C & S Indicated? No; Casts 3-5 Hyaline LPF (Negative); Crystals Negative HPF (Negative); Epithelial Cells Few HPF (Negative); Mucus Negative (Negative); WBC Negative HPF (0-5)
== END 2022-07-18 14:18 | disposition home or self-care (01) ==
LOC: LBN 14:17
PROVIDERS: PCP Family Medicine; Visit Provider Nurse Practitioner Family
DX: R31.9 Hematuria, unspecified (principal)
CPT/HCPCS: 81003; 81015

== ENCOUNTER 2022-07-23 03:03 | Outpatient (CLI) | payer MEDICAID, SELFPAY ==
[2022-07-23 11:46] LABS: Abs Immature Grans 0.03 10^3/uL (0.0-0.06); Absolute Basophil Count 0.09 10^3/uL (0.0-0.2); Absolute Eosinophil Count 0.41 10^3/uL (0.0-0.7); Absolute Lymphocyte Count 1.25 10^3/uL (1.2-3.4); Absolute Monocyte Count 0.73 10^3/uL (0.1-0.8); Absolute Neutrophil Count 3.85 10^3/uL (1.2-6.7); Basophils % 1.4; Eosinophils % 6.4; HGB 14.6 g/dL (11.2-15.7); Immature Grans % 0.5; Lymphocytes % 19.7; MCH 29.6 pg (27.0-33.0); MCHC 33.2 % (32.0-36.0); MCV 89 fL (80-95); MPV 11.2 fL (8.0-11.0); Monocytes % 11.5; Neutrophils % 60.5; Platelet Count 192 10^3/uL (130-400); RBC 4.94 10^6/uL (3.93-5.22); RDW 12.3 % (11.7-14.6); RDW-SD 40.4 fL; WBC 6.36 10^3/uL (4.4-10.8)
[2022-07-23 12:24] LABS: ALT 41 U/L (14-59); AST 33 U/L (15-37); Albumin 3.5 g/dL (3.4-5.0); Alkaline Phosphatase 136 U/L (46-116); Anion Gap 6.9 mmol/L (3-11); BUN 21 mg/dL (7-18); Bilirubin, Total 0.3 mg/dL (0.2-1.0); CO2 30.1 mmol/L (21.0-32.0); CREATININE 0.9 mg/dL (0.55-1.02); Calcium 9.2 mg/dL (8.5-10.1); Chloride 104 mmol/L (98-107); Estimated GFR 73.64 (mL/min/1.73m2); FREE T4 1.35 ng/dL (0.76-1.46); Glucose 100 mg/dL (74-106); Potassium 3.7 mmol/L (3.5-5.1); Sodium 141 mmol/L (136-145); TSH 2.84 uIU/mL (0.36-3.74); Total Protein 7.7 g/dL (6.4-8.2)
== END 2022-07-23 03:04 | disposition home or self-care (01) ==
PROVIDERS: PCP Family Medicine; Visit Provider Nurse Practitioner Adult Health
DX: C64.2 Malignant neoplasm of left kidney, except renal pelvis (principal); E03.9 Hypothyroidism, unspecified
CPT/HCPCS: 36415; 80053; 84439; 84443; 85025

== ENCOUNTER → 2022-08-07 02:35 | Outpatient (CLI) | payer MEDICAID, SELFPAY ==
--- NOTE | 2022-08-07 13:29 | DI.CT_ITS ---
Exam(s) CT CHEST/ABD/PEL W EXAM: CT CHEST/ABD/PEL W CLINICAL HISTORY: KIDNEY CA, RECURRENCE, F/U, MALIGNANT NEOPLASM METS TO LUNG, C78.00 TECHNIQUE: Imaging Protocol: Axial computed tomography images with coronal and sagittal reformatted images were created and reviewed CONTRAST MATERIAL: Intravenous: Omnipaque 350 contrast volume:98 mL Oral: Yes COMPARISON: CT CT CHEST/ABD/PEL W from 05/17/[address] CHEST ABDOMEN PELVIS W CONTRAST (GENERIC) from 04/19/2022 FINDINGS: CHEST: Tracheobronchial tree: Patent where visualized. Pulmonary parenchyma: No consolidation or dominant measurable mass. Emphysematous changes are present in the lungs. There is a 4 mm noncalcified pulmonary nodule in the right middle lobe. There are fe w smaller subpleural nodule seen in the lungs. Visualized thyroid gland: Unremarkable. Mediastinum and Kendra: There again seen mediastinal periaortic lymph nodes. The largest measures 2.3 x 2.4 cm. This has shown slight decrease in size compared to the prior examination. The subcarinal lymph node measures 1.9 x 1.8 cm which is grossly unchanged. The esophagus is unremarkable. Pleura: The bilateral pleural effusions are now moderate in size. They have increased since the prio r examination. No pneumothorax is present. Heart: The heart is not dilated. No coronary artery calcifications are seen. No pericardial effusion. Pulmonary arteries: No pulmonary emboli are identified. Aorta: Thoracic aorta non-dilated. No evidence of dissection. Lymph nodes: No axillary adenopathy. There are again seen mildly enlarged left supraclavicular lymph nodes. Soft tissues: Unremarkable. Bones:There are now multiple lytic metastatic lesions including the thoracic spine, ribs and manubriu m. There is now a fracture of the superior endplate of T5. ABDOMEN: Liver: Normal density. There are several new hepatic masses present consistent with metastatic diseas e. Portal, Superior Mesenteric, and Splenic Veins: Unremarkable. Gallbladder and Biliary Tract: Status post cholecystectomy. No change in the extrahepatic bile ducts . Pancreas: Mild fatty atrophy of the pancreas. No evidence of a pancreatic mass. Spleen: Normal. Adrenals: The right adrenal gland is unremarkable. There is a stable left adrenal nodule. Kidneys: The right kidney is unremarkable. The heterogeneous left renal mass is grossly unchanged in size. There is a calcification in the right kidney which may represent a nonobstructing stone. The re is infiltration in the left pararenal soft tissues. Abdominal Aorta: Abdominal portion non-dilated. There is atherosclerosis present. Bowel: There is diverticulosis seen in the sigmoid colon but no evidence of acute diverticulitis. No evidence of bowel obstruction. No evidence of appendicitis. Peritoneal Cavity: There is a trace amount of fluid in the pelvis. No free air. Lymph Nodes: There is again seen retroperitoneal adenopathy which is slightly increased particularly in the left periaortic region. Bones: There are lytic lesion seen in the bones consistent with osseous metastatic disease. The heather ent has a left total hip replacement. Soft Tissues: Unremarkable. PELVIS: Bladder: Symmetric distention, no gross wall thickening. Portions of the urinary bladder are obscured secondary to artifact from the patient's hip prosthesis. Reproductive Organs: Unremarkable as visualized. Lymph Nodes: Within normal limits. Bones: Within normal limits. IMPRESSION: 1. Progression of metastatic disease in the chest abdomen and pelvis since 04/19/2022. There has been an increase in in number of the hepatic metastases. There is been progression of the abdominal leoncio opathy and increasing bilateral pleural effusions. 2. Interval development of diffuse osseous metastatic disease. 3. Stable appearance of the left adrenal mass. RADIATION DOSE DELIVERED: 1,171.72mGy.cm Total DLP DATA REPOSITORY: All CT scans at this facility are submitted to the National Radiology Data Registry (NRDR) Dose Index Registry (DIR) with the [employer] (ACR). RADIATION OPTIMIZATION: All CT scans at this facility use at least one of these dose optimization te chniques: automated exposure control; mA and/or kV adjustment per patient size (includes targeted exa ms where dose is matched to clinical indication); or iterative reconstruction.
[2022-08-07] MEDS: Omnipaque 350 MG/ML 100 ML BTL IJ (13:30)
== END ==
PROVIDERS: PCP Family Medicine; Visit Provider Internal Medicine
DX: C78.00 Secondary malignant neoplasm of unspecified lung (principal)
CPT/HCPCS: 74177; 71260; J3490

== ENCOUNTER 2022-08-13 04:20 | Outpatient (CLI) | payer MEDICAID, SELFPAY ==
[2022-08-13 11:36] LABS: Abs Immature Grans 0.01 10^3/uL (0.0-0.06); Absolute Basophil Count 0.07 10^3/uL (0.0-0.2); Absolute Eosinophil Count 0.39 10^3/uL (0.0-0.7); Absolute Lymphocyte Count 1.02 10^3/uL (1.2-3.4); Absolute Monocyte Count 0.45 10^3/uL (0.1-0.8); Absolute Neutrophil Count 4.25 10^3/uL (1.2-6.7); Basophils % 1.1; Eosinophils % 6.3; HCT 44.6 % (36.0-46.0); HGB 14.1 g/dL (11.2-15.7); Immature Grans % 0.2; Lymphocytes % 16.5; MCH 28.2 pg (27.0-33.0); MCHC 31.6 % (32.0-36.0); MCV 89 fL (80-95); MPV 11.2 fL (8.0-11.0); Monocytes % 7.3; Neutrophils % 68.6; Platelet Count 172 10^3/uL (130-400); RDW 12.8 % (11.7-14.6); RDW-SD 41.9 fL; WBC 6.19 10^3/uL (4.4-10.8)
[2022-08-13 12:02] LABS: ALT 29 U/L (14-59); AST 28 U/L (15-37); Albumin 3.7 g/dL (3.4-5.0); Alkaline Phosphatase 142 U/L (46-116); Anion Gap 9.7 mmol/L (3-11); BUN 23 mg/dL (7-18); Bilirubin, Total 0.3 mg/dL (0.2-1.0); CO2 29.3 mmol/L (21.0-32.0); CREATININE 0.9 mg/dL (0.55-1.02); Calcium 9.1 mg/dL (8.5-10.1); Chloride 104 mmol/L (98-107); Estimated GFR 73.64 (mL/min/1.73m2); FREE T4 1.19 ng/dL (0.76-1.46); Glucose 106 mg/dL (74-106); Potassium 3.9 mmol/L (3.5-5.1); Sodium 143 mmol/L (136-145); TSH 5.49 uIU/mL (0.36-3.74); Total Protein 7.8 g/dL (6.4-8.2)
== END 2022-08-13 04:21 | disposition home or self-care (01) ==
LOC: LBO 04:21
PROVIDERS: PCP Family Medicine; Visit Provider Internal Medicine
DX: C64.2 Malignant neoplasm of left kidney, except renal pelvis (principal)
CPT/HCPCS: 36415; 80053; 84439; 84443; 85025

== ENCOUNTER → 2022-08-14 03:00 | Outpatient (CLI) | payer MEDICAID, SELFPAY ==
--- NOTE | 2022-08-14 07:45 | DI.MAMMO_ITS ---
Exam(s) MAMMO SCREENING EXAM: MAMMO SCREENING CLINICAL HISTORY: screening,z12.39. TECHNIQUE: Bilateral full field digital CC and MLO mammographic images were obtained with 3D tomosyn thesis and utilizing computer aided detection (CAD). COMPARISON: Prior mammograms were reviewed. FINDINGS: There has been no significant change in the appearance and distribution of the fibroglandular tissue. There are no CAD designations. There are no new spiculated masses nor malignant appearing microcalcification groups. There is no significant architectural distortion nor skin thickening-retraction. IMPRESSION: No radiographic evidence of malignancy. BI-RADS Category 1 - Negative Breast Density - Category B - Scattered areas of fibroglandular density Breast density Category C or D implies that the patient has dense breast tissue. Dense breast tissue can make it harder to find cancer on a mammogram. Dense breast tissue is also associated with an incr eased risk of breast cancer. This information about the result of the mammogram report was provided to the patient to raise their awareness. Use this report when you speak with the patient about their risks for breast cancer, which includes their family history. At that time, you may recommend additional screening tests (Ultrasoun d or MRI) as these tests may add significant information. A negative radiographic report should not delay biopsy if a dominant or clinically suspicious mass is present. Up to ten percent of cancers are not identified on mammography. A negative report may reinforce clinical impression. Adenosis and dense breasts may obscure an underlying neoplasm. False positive reports average 6 to 10%. Patient will receive a letter notifying them of these results.
== END ==
PROVIDERS: PCP Family Medicine; Visit Provider Nurse Practitioner Family
DX: Z12.31 Encounter for screening mammogram for malignant neoplasm of breast (principal)
CPT/HCPCS: 77063; 77067

== ENCOUNTER → 2022-08-22 01:41 | Outpatient (CLI) | payer MEDICAID, SELFPAY ==
--- NOTE | 2022-08-22 10:45 | DI.NM_ITS ---
Exam(s) [place] BONE SCAN WHOLE BODY GRP EXAM: [place] BONE SCAN WHOLE BODY GRP CLINICAL HISTORY: OSSEOUS METASTASIS, C79.51,EVAL SITE FOR [employer] HIP PAIN AND ACROSS. TECHNIQUE: Injected Dose: 20 mCi Tc-99m MDP Delayed Images: 2-3 hours. COMPARISON: [facility] BONE SCAN WHOLE BODY GRP from 05/18/[address] CHEST/ABD/PEL W from 08/07/2022 FINDINGS: Symmetric axial uptake. Bilateral renal excretion is identified. There is increased radiotracer uptak e in the T5 T8 and T11 vertebral bodies. There is also increase activity seen in the left 10th rib p osteriorly. There is also increased radiotracer uptake in the manubrium. There is also increased ra diotracer uptake in the region of the head of the left humerus. These findings are most consistent w ith osseous metastatic disease. There is mild dilatation of the left renal collecting system. The p atient has a left total hip replacement. There are marked degenerative changes seen in the right hip . IMPRESSION: 1. Findings consistent with osseous metastatic disease. The areas of increased radiotracer uptake co rrespond to the lesion seen on the CT scan of the chest abdomen and pelvis from 08/07/2022. DATA REPOSITORY:
== END ==
PROVIDERS: PCP Family Medicine; Visit Provider Radiology Radiation Oncology
DX: M25.551 Pain in right hip (principal); M25.552 Pain in left hip; C79.51 Secondary malignant neoplasm of bone; Z96.642 Presence of left artificial hip joint; M16.11 Unilateral primary osteoarthritis, right hip
CPT/HCPCS: 78306

== ENCOUNTER 2022-08-27 03:17 | Outpatient (CLI) | payer MEDICAID, SELFPAY ==
[2022-08-27 09:35] LABS: Abs Immature Grans 0.07 10^3/uL (0.0-0.06); Absolute Basophil Count 0.09 10^3/uL (0.0-0.2); Absolute Eosinophil Count 0.13 10^3/uL (0.0-0.7); Absolute Lymphocyte Count 0.48 10^3/uL (1.2-3.4); Absolute Monocyte Count 0.54 10^3/uL (0.1-0.8); Absolute Neutrophil Count 10.35 10^3/uL (1.2-6.7); Basophils % 0.8; Eosinophils % 1.1; HCT 41.7 % (36.0-46.0); HGB 13.2 g/dL (11.2-15.7); Immature Grans % 0.6; Lymphocytes % 4.1; MCHC 31.7 % (32.0-36.0); MCV 89 fL (80-95); MPV 10.2 fL (8.0-11.0); Monocytes % 4.6; Neutrophils % 88.8; Platelet Count 440 10^3/uL (130-400); RBC 4.71 10^6/uL (3.93-5.22); RDW 14.1 % (11.7-14.6); RDW-SD 45.1 fL; WBC 11.66 10^3/uL (4.4-10.8)
[2022-08-27 10:05] LABS: ALT 114 U/L (14-59); AST 109 U/L (15-37); Albumin 3.1 g/dL (3.4-5.0); Alkaline Phosphatase 467 U/L (46-116); Anion Gap 7.7 mmol/L (3-11); BUN 21 mg/dL (7-18); Bilirubin, Total 0.5 mg/dL (0.2-1.0); CO2 29.3 mmol/L (21.0-32.0); CREATININE 0.9 mg/dL (0.55-1.02); Calcium 9.3 mg/dL (8.5-10.1); Chloride 102 mmol/L (98-107); Estimated GFR 73.64 (mL/min/1.73m2); FREE T4 1.49 ng/dL (0.76-1.46); Glucose 116 mg/dL (74-106); Potassium 3.6 mmol/L (3.5-5.1); Sodium 139 mmol/L (136-145); TSH 4.46 uIU/mL (0.36-3.74); Total Protein 7.4 g/dL (6.4-8.2)
== END 2022-08-27 03:18 | disposition home or self-care (01) ==
PROVIDERS: Internal Medicine; PCP Family Medicine; Referring Provider Internal Medicine Interventional Cardiology; Visit Provider Nurse Practitioner Adult Health
DX: C64.2 Malignant neoplasm of left kidney, except renal pelvis (principal)
CPT/HCPCS: 36415; 80053; 84439; 84443; 85025

== ENCOUNTER → 2022-09-07 00:55 | Outpatient (CLI) | payer MEDICAID, SELFPAY ==
--- NOTE | 2022-09-07 13:00 | DI.MRI_ITS ---
Exam(s) MR LUMBAR SPINE WO/W EXAM: MR LUMBAR SPINE WO/W CLINICAL HISTORY: RESTAGING OF RENAL CELL CARCINOMA WITH MULTIPLE BONE METS, C64.2. TECHNIQUE: Multiplanar multisequence MRI of the Lumbar Spine was performed. CONTRAST MATERIAL: IV Contrast: 12 mL of Dotarem contrast administered. COMPARISON: [facility] BONE SCAN WHOLE BODY GRP from 08/22/2022 FINDINGS: Bones: The last intervertebral disc space is designated the L5/S1 level for the numbering purpose of this examination. The vertebral body heights are well maintained. Alignment is satisfactory. There is multifocal metastatic disease in the lumbar spine, bilateral iliacs and sacrum. Areas include T11 through L1, L5 and S1. Cord: The conus tip ends at the T12 level. It is of normal size and signal intensity. T12-L1: No disc herniations or bulges are present. No central spinal canal or neural foraminal stenos is. L1-2: No disc herniations or bulges are present. No central spinal canal or neural foraminal stenosis . L2-3: There is a mild diffuse disc bulge. No central spinal canal or neural foraminal stenosis. L3-4: There is a mild diffuse disc bulge. There are degenerative changes of the facets. These all c ontribute to cause mild narrowing of the central spinal canal. No significant neural foraminal steno sis. L4-5: There is a left paracentral disc herniation with extrusion posterior to L5 causing left lateral recess stenosis. There is resultant compression of the left L5 nerve root. There are degenerative changes of the facets. There is mild narrowing of the central spinal canal. There is mild bilateral neural foraminal stenosis. L5-S1: There is no disc herniation or bulge present. There are degenerative changes of the facets. No significant central spinal canal stenosis is seen. No significant neural foraminal stenosis is pr esent. Soft tissues: The visualized SI joints and sacrum are well maintained. The paraspinal soft tissues ar e unremarkable. Following contrast administration enhancement of the metastatic lesions is noted. IMPRESSION: 1. Multilevel degenerative changes resulting in central spinal canal neural foraminal stenosis as ahsan cribed above. 2. L4-5 left paracentral disc herniation causing left lateral recess stenosis and compressing the lef t L5 nerve root. 3. Multifocal metastatic disease involving the lumbar spine, bilateral iliacs and sacrum. DATA REPOSITORY:
--- NOTE | 2022-09-07 13:00 | DI.MRI_ITS ---
Exam(s) MR THORACIC SPINE WO/W EXAM: MR THORACIC SPINE WO/W CLINICAL HISTORY: RESTAGING OF RENAL CELL CARCINOMA WITH MULTIPLE BONE METS, C64.2. TECHNIQUE: Multiplanar multisequence MRI of the Thoracic spine was performed. CONTRAST MATERIAL: IV Contrast: 12 mL of Dotarem contrast administered. COMPARISON: CT CT CHEST/ABD/PEL W from 08/07/2022 MR MR LUMBAR SPINE WO/W from 09/07/2022 FINDINGS: Bones: The vertebral body heights are well maintained. Alignment is satisfactory. There are findings of metastatic disease throughout the lower cervical and thoracic spine. Involved vertebra include C6 , T5, T7, T9, T11 and T12. At T5, there is expansion into the spinal canal but no cord compression is seen. There is involvement of the posterior elements of T7, T9 and T12. Cord: The thoracic cord is normal size and signal intensity. No intrinsic cord lesion is present. Discs: No disc herniation or bulge is present. Soft tissues: There are enhancing soft tissue masses anterior to the spine adjacent to the aorta lik lambert reflecting soft tissue metastases. IMPRESSION: 1. Findings of a diffuse osseous metastatic disease. There is expansion of the metastasis of the T5 vertebral body into the spinal canal but no cord compression is seen. 2. There is again seen extensive periaortic metastatic disease. DATA REPOSITORY:
[2022-09-07] MEDS: Normal Saline Flush 10 ML SYR IVP (13:56)
== END ==
PROVIDERS: PCP Family Medicine; Visit Provider Internal Medicine
DX: C64.2 Malignant neoplasm of left kidney, except renal pelvis (principal); C79.51 Secondary malignant neoplasm of bone; M47.816 Spondylosis without myelopathy or radiculopathy, lumbar region; M51.26 Other intervertebral disc displacement, lumbar region
CPT/HCPCS: 72158; 72157

== ENCOUNTER 2022-09-18 02:15 | Outpatient (CLI) | payer MEDICAID, SELFPAY ==
[2022-09-18 08:19] LABS: Abs Immature Grans 0.05 10^3/uL (0.0-0.06); Absolute Basophil Count 0.09 10^3/uL (0.0-0.2); Absolute Eosinophil Count 0.08 10^3/uL (0.0-0.7); Absolute Monocyte Count 0.76 10^3/uL (0.1-0.8); Absolute Neutrophil Count 8.28 10^3/uL (1.2-6.7); Basophils % 0.9; Eosinophils % 0.8; HGB 13.1 g/dL (11.2-15.7); Immature Grans % 0.5; MCH 28.3 pg (27.0-33.0); MCHC 31.2 % (32.0-36.0); MCV 91 fL (80-95); MPV 9.9 fL (8.0-11.0); Monocytes % 7.6; Neutrophils % 82.2; Platelet Count 363 10^3/uL (130-400); RBC 4.63 10^6/uL (3.93-5.22); RDW 16.1 % (11.7-14.6); RDW-SD 53.1 fL; WBC 10.06 10^3/uL (4.4-10.8)
[2022-09-18 08:46] LABS: ALT 25 U/L (14-59); AST 27 U/L (15-37); Albumin 3.2 g/dL (3.4-5.0); Alkaline Phosphatase 183 U/L (46-116); Anion Gap 8.3 mmol/L (3-11); BUN 20 mg/dL (7-18); Bilirubin, Total 0.5 mg/dL (0.2-1.0); CO2 30.7 mmol/L (21.0-32.0); CREATININE 1.1 mg/dL (0.55-1.02); Calcium 8.5 mg/dL (8.5-10.1); Chloride 99 mmol/L (98-107); Estimated GFR 57.88 (mL/min/1.73m2); FREE T4 1.54 ng/dL (0.76-1.46); Glucose 142 mg/dL (74-106); Potassium 3.5 mmol/L (3.5-5.1); Sodium 138 mmol/L (136-145); TSH 4.71 uIU/mL (0.36-3.74); Total Protein 8.2 g/dL (6.4-8.2)
== END 2022-09-18 02:16 | disposition home or self-care (01) ==
LOC: LBO 02:15
PROVIDERS: PCP Family Medicine; Visit Provider Nurse Practitioner Adult Health
DX: C64.2 Malignant neoplasm of left kidney, except renal pelvis (principal)
CPT/HCPCS: 36415; 80053; 84439; 84443; 85025

== ENCOUNTER 2022-10-09 03:44 | Outpatient (CLI) | payer MEDICAID, SELFPAY ==
[2022-10-09 09:38] LABS: Abs Immature Grans 0.03 10^3/uL (0.0-0.06); Absolute Basophil Count 0.09 10^3/uL (0.0-0.2); Absolute Lymphocyte Count 0.87 10^3/uL (1.2-3.4); Absolute Monocyte Count 0.73 10^3/uL (0.1-0.8); Absolute Neutrophil Count 5.44 10^3/uL (1.2-6.7); Basophils % 1.2; Eosinophils % 1.4; HCT 38.8 % (36.0-46.0); HGB 12.3 g/dL (11.2-15.7); Immature Grans % 0.4; MCH 28.3 pg (27.0-33.0); MCHC 31.7 % (32.0-36.0); MCV 89 fL (80-95); MPV 10.2 fL (8.0-11.0); Monocytes % 10.1; Neutrophils % 74.9; Platelet Count 233 10^3/uL (130-400); RBC 4.35 10^6/uL (3.93-5.22); RDW 16.4 % (11.7-14.6); RDW-SD 54.2 fL; WBC 7.26 10^3/uL (4.4-10.8)
[2022-10-09 10:02] LABS: ALT 39 U/L (14-59); AST 38 U/L (15-37); Albumin 3.2 g/dL (3.4-5.0); Alkaline Phosphatase 285 U/L (46-116); Anion Gap 6.6 mmol/L (3-11); BUN 19 mg/dL (7-18); Bilirubin, Total 0.4 mg/dL (0.2-1.0); CO2 31.4 mmol/L (21.0-32.0); CREATININE 0.8 mg/dL (0.55-1.02); Calcium 10.8 mg/dL (8.5-10.1); Chloride 101 mmol/L (98-107); Estimated GFR 84.82 (mL/min/1.73m2); FREE T4 1.53 ng/dL (0.76-1.46); Glucose 115 mg/dL (74-106); Potassium 4.3 mmol/L (3.5-5.1); Sodium 139 mmol/L (136-145); TSH 6.03 uIU/mL (0.36-3.74); Total Protein 8.3 g/dL (6.4-8.2)
== END 2022-10-09 03:45 | disposition home or self-care (01) ==
PROVIDERS: PCP Family Medicine; Visit Provider Nurse Practitioner Adult Health
DX: C64.2 Malignant neoplasm of left kidney, except renal pelvis (principal)
CPT/HCPCS: 36415; 80053; 84439; 84443; 85025

== ENCOUNTER 2022-10-09 18:58 | Outpatient (REF) | payer MEDICAID, SELFPAY ==
[2022-10-09 13:06] LABS: Bilirubin Negative (Negative); Blood Moderate (Negative); Clarity Cloudy (Clear); Glucose Negative (Negative); Ketones Negative (Negative); Leukocyte Esterase Small (Negative); Nitrite Negative (Negative); Specific Gravity >= 1.030 (1.005-1.025); Urobilinogen 0.2 EU/dL (Up TO 0.2); pH 5.5 (5-8)
[2022-10-09 13:24] LABS: C & S Indicated? Yes; WBC >50 HPF (0-5)
== END 2022-10-09 18:59 | disposition home or self-care (01) ==
LOC: LBN 18:58
PROVIDERS: PCP Family Medicine; Visit Provider Internal Medicine
DX: E86.0 Dehydration (principal); C64.2 Malignant neoplasm of left kidney, except renal pelvis; C79.51 Secondary malignant neoplasm of bone; R94.6 Abnormal results of thyroid function studies; Z79.899 Other long term (current) drug therapy
CPT/HCPCS: 87077; 81003; 81015; 87086; 87186

== ENCOUNTER 2022-10-16 03:31 | Outpatient (CLI) | payer MEDICAID, SELFPAY ==
[2022-10-16 10:16] LABS: ALT 22 U/L (14-59); AST 28 U/L (15-37); Albumin 3.2 g/dL (3.4-5.0); Alkaline Phosphatase 284 U/L (46-116); BUN 19 mg/dL (7-18); Bilirubin, Total 0.6 mg/dL (0.2-1.0); CREATININE 0.9 mg/dL (0.55-1.02); Calcium 11.2 mg/dL (8.5-10.1); Chloride 100 mmol/L (98-107); Estimated GFR 73.64 (mL/min/1.73m2); Glucose 140 mg/dL (74-106); Potassium 4.3 mmol/L (3.5-5.1); Sodium 139 mmol/L (136-145); Total Protein 8.6 g/dL (6.4-8.2)
== END 2022-10-16 03:32 | disposition home or self-care (01) ==
LOC: LBO 03:31
PROVIDERS: PCP Family Medicine; Visit Provider Internal Medicine
DX: C64.2 Malignant neoplasm of left kidney, except renal pelvis (principal)
CPT/HCPCS: 36415; 80053

== ENCOUNTER 2022-10-30 03:17 | Outpatient (CLI) | payer MEDICAID, SELFPAY ==
[2022-10-30 09:11] LABS: Abs Immature Grans 0.04 10^3/uL (0.0-0.06); Absolute Basophil Count 0.09 10^3/uL (0.0-0.2); Absolute Eosinophil Count 0.08 10^3/uL (0.0-0.7); Absolute Lymphocyte Count 0.64 10^3/uL (1.2-3.4); Absolute Monocyte Count 0.52 10^3/uL (0.1-0.8); Absolute Neutrophil Count 8.41 10^3/uL (1.2-6.7); Basophils % 0.9; Eosinophils % 0.8; HCT 42.4 % (36.0-46.0); Immature Grans % 0.4; Lymphocytes % 6.5; MCH 27.4 pg (27.0-33.0); MCHC 30.7 % (32.0-36.0); MCV 90 fL (80-95); MPV 9.4 fL (8.0-11.0); Monocytes % 5.3; Neutrophils % 86.1; Platelet Count 429 10^3/uL (130-400); RBC 4.74 10^6/uL (3.93-5.22); RDW 15.3 % (11.7-14.6); RDW-SD 51.1 fL; WBC 9.78 10^3/uL (4.4-10.8)
[2022-10-30 09:43] LABS: ALT 27 U/L (14-59); AST 27 U/L (15-37); Albumin 3.2 g/dL (3.4-5.0); Alkaline Phosphatase 416 U/L (46-116); Anion Gap 11.1 mmol/L (3-11); BUN 20 mg/dL (7-18); Bilirubin, Total 0.4 mg/dL (0.2-1.0); CO2 27.9 mmol/L (21.0-32.0); Chloride 102 mmol/L (98-107); FREE T4 1.45 ng/dL (0.76-1.46); Glucose 131 mg/dL (74-106); Potassium 4.1 mmol/L (3.5-5.1); Sodium 141 mmol/L (136-145); Total Protein 8.6 g/dL (6.4-8.2)
== END 2022-10-30 03:18 | disposition home or self-care (01) ==
PROVIDERS: PCP Family Medicine; Visit Provider Nurse Practitioner Adult Health
DX: C64.2 Malignant neoplasm of left kidney, except renal pelvis (principal); R94.6 Abnormal results of thyroid function studies; E03.9 Hypothyroidism, unspecified
CPT/HCPCS: 36415; 80053; 84439; 84443; 85025